=== PATIENT | male | born 1955 | race Caucasian/White ===

== ENCOUNTER 2017-08-11 11:30 | Outpatient (CLI) | payer SELFPAY ==
[~2017-08-11] VITALS: Ht 188 cm; Wt 102.5 kg
[2017-08-11] MEDS ORDERED: METO-395 PO (11:49)
[2017-08-11] MEDS ORDERED: ALPR1TAB7 PO (11:49)
[2017-08-11] MEDS ORDERED: ZOLP10TA PO (11:49)
[2017-08-11] MEDS ORDERED: HYDR-753 PO (11:49)
[2017-08-11] MEDS ORDERED: LISI1TAB10 PO (11:49)
[2017-08-11] MEDS ORDERED: TRAM50TA2 PO (11:49)
== END 2017-08-11 12:47 ==
LOC: PREOP 11:30
PROVIDERS: ATTEND Surgery
DX: Z01.818 Encounter for other preprocedural examination (principal); Z12.11 Encounter for screening for malignant neoplasm of colon

== ENCOUNTER 2017-08-16 09:13 | Day surgery (SDC) | payer OTHER ==
[~2017-08-16] VITALS: Ht 188 cm; Wt 102.5 kg
[~2017-08-16 09:13] MED LIST: ALPR1TAB7 PO; HYDR-753 PO; LISI1TAB10 PO; METO-395 PO; TRAM50TA2 PO; ZOLP10TA PO
--- OUTSIDE RECORDS SUMMARY | 2017-08-16 09:16 | XMS REPORT ---
Author Author WALTER WALTERS Organization [facility] Address [address] [place] [address] Care Team Providers Care Tax Credit Leasing Consultant Name Role Phone MICHAEL WALTERSNETTE Unavailable PROBLEMS Type Condition ICD9-CM Code [id number] Code Onset Dates Condition Status SNOMED Code Problem Generalized anxiety disorder F41.1 Active 58956410 Problem Essential hypertension I10 Active 85597693 Problem Hypercholesterolemia E78.00 Active 20604630 Problem Mid sternal chest pain R07.89 Active 76090203 Problem Family history of aortic aneurysm Z82.49 Active 966792660 Problem Coronary artery disease, angina presence unspecified, unspecified vessel or lesion type, unspecified whether [place] or transplanted heart I25.10 Active 70593797 Problem Elevated liver enzymes R74.8 Active 095762831 Problem Chronic hepatitis C with hepatic coma B18.2 Active 451904158 Problem High risk sexual behavior Z72.51 Active 146870795 ALLERGIES No Known Allergies SOCIAL HISTORY Never Assessed PLAN OF CARE Activity Details Follow Up 3 Months Reason: VITAL SIGNS Height 73 in 2016-09-01 Weight 208.5 lbs 2016-09-01 Temperature 97.8 degrees Fahrenheit 2016-09-01 Heart Rate 92 bpm 2016-09-01 Respiratory Rate 20 2016-09-01 BMI 27.51 kg/m2 2016-09-01 Blood pressure systolic 200 mmHg 2016-09-01 Blood pressure diastolic 110 mmHg 2016-09-01 MEDICATIONS Medication Instructions Dosage Frequency Start Date End Date Duration Status Azithromycin 1 GM Orally Once a day as directed 24h Aug, Active Xanax 1 MG Orally as needed four times a day 1 Tablet 6h Aug, Active Ibuprofen 800 MG Orally Three times a day 1 tablet 8h Active Hydrocodone-Acetaminophen 10-325 mg 1 Tablet by Oral route 3 times per day PRN pain Jul, Active Losartan Potassium 100 mg Orally Once a day 1 tablet 24h Aug, Active RESULTS Name Result Date Reference Range URINE DRUG SCREEN (IN HOUSE) 2016-09-01 Lot # [id number] Exp date 04/2018 Control + COCAINE negative AMPH negative MTD negative THC negative OPIATE negative BENZO positive PCP negative BAR negative OXY negative MAMP negative TCA negative BUP negative MDMA negative HEP C AB W/REFLEX ([facility] ONLY) 2016-09-01 PROCEDURES Procedure Date Ordered Result Body Site HEP C AB W/REFLEX ([facility] ONLY) September 01, 2016 VENIPUNCT, ROUTINE* September 01, 2016 DRUG TEST PRSMV DIR OPT OBS September 01, 2016 IMMUNIZATIONS No Known Immunizations MEDICAL (GENERAL) HISTORY Type Description Date Medical History anxiety Medical History hypertension Medical History chronic pain Surgical History Stents in heart 07/2015
--- OUTSIDE RECORDS SUMMARY | 2017-08-16 09:16 | XMS REPORT ---
Author Author ALMA HAYNES Organization [employer] Address Unknown Phone Unavailable Care Team Providers Care Appliance Assembler Name Role Phone ALMA HAYENS Unavailable Allergies No Known Allergies Problems Problem Type Condition Code Onset Dates Condition Status Problem Generalized anxiety disorder 300.02 Active Problem Other, multiple, and unspecified sites, insect bite, nonvenomous, infected 919.5 Active Problem Essential hypertension, benign 401.1 Active Problem Pain in soft tissues of limb 729.5 Active Medications Medication Code System Code Instructions Start Date End Date Status Dosage Xanax [facility] [address]-35 1 MG Orally 4 times a day PRN anxiety August 26, 2014 1 Tablet Results No Known Results Summary Purpose [employer] Submission
--- OUTSIDE RECORDS SUMMARY | 2017-08-16 09:16 | XMS REPORT ---
Author Author ALMA HAYNES Organization [employer] Address Unknown Phone Unavailable Care Team Providers Care Overhead Worker Name Role Phone ALMA HAYNES CP Unavailable Allergies No Known Allergies Problems Problem Type Condition Code Onset Dates Condition Status Problem Generalized anxiety disorder 300.02 Active Problem Other, multiple, and unspecified sites, insect bite, nonvenomous, infected 919.5 Active Problem Essential hypertension, benign 401.1 Active Problem Pain in soft tissues of limb 729.5 Active Medications No Known Medications Results No Known Results Summary Purpose [employer] Submission
--- OUTSIDE RECORDS SUMMARY | 2017-08-16 09:16 | XMS REPORT ---
Author Author ALMA HAYNES Organization [facility] Address Unknown Care Team Providers Care Fruit Buyer Name Role Phone ALMA HAYNES Unavailable PROBLEMS Type Condition ICD9-CM Code [id number] Code Onset Dates Condition Status SNOMED Code Problem Generalized anxiety disorder F41.1 Active 79732309 Problem Essential hypertension I10 Active 42945132 Problem Hypercholesterolemia E78.00 Active 55827973 Problem Mid sternal chest pain R07.89 Active 34737186 Problem Family history of aortic aneurysm Z82.49 Active 496795812 Problem Coronary artery disease, angina presence unspecified, unspecified vessel or lesion type, unspecified whether [place] or transplanted heart I25.10 Active 80383383 Problem Elevated liver enzymes R74.8 Active 111870070 Problem Chronic hepatitis C with hepatic coma B18.2 Active 387914958 Problem High risk sexual behavior Z72.51 Active 201460625 ALLERGIES Unknown Allergies SOCIAL HISTORY No smoking Hx information available PLAN OF CARE VITAL SIGNS MEDICATIONS Medication Instructions Dosage Frequency Start Date End Date Duration Status Xanax 1 MG Orally 4 times a day PRN anxiety 1 Tablet Aug, 30 days Active RESULTS No Results PROCEDURES No Known procedures IMMUNIZATIONS No Known Immunizations
--- OUTSIDE RECORDS SUMMARY | 2017-08-16 09:17 | XMS REPORT ---
Author Author ALMA HAYNES Organization [employer] Address Unknown Phone Unavailable Care Team Providers Care Chemicals Distiller Name Role Phone ALMA HAYNES CP Unavailable [...]
--- OUTSIDE RECORDS SUMMARY | 2017-08-16 09:17 | XMS REPORT ---
Author Author WALTER WALTERS Organization [facility] Address [address] [place] [address] Care Team Providers Care Medical Staff Services Coordinator Name Role Phone MICHAEL WALTERSNETTE Unavailable PROBLEMS Type Condition ICD9-CM Code [id number] Code Onset Dates Condition Status SNOMED Code Problem Generalized anxiety disorder F41.1 Active 17494816 Problem Essential hypertension I10 Active 98379741 Problem Hypercholesterolemia E78.00 Active 53282738 Problem Mid sternal chest pain R07.89 Active 66084055 Problem Family history of aortic aneurysm Z82.49 Active 221453461 Problem Coronary artery disease, angina presence unspecified, unspecified vessel or lesion type, unspecified whether [place] or transplanted heart I25.10 Active 06348376 Problem Elevated liver enzymes R74.8 Active 112002913 Problem Chronic hepatitis C with hepatic coma B18.2 Active 620221848 Problem High risk sexual behavior Z72.51 Active 729584335 ALLERGIES No Known Allergies SOCIAL HISTORY Never Assessed PLAN OF CARE Activity Details Follow Up 4 Weeks Reason:blood pressure VITAL SIGNS Height 73 in 2016-08-30 Weight 208.5 lbs 2016-08-30 Temperature 98.0 degrees Fahrenheit 2016-08-30 Heart Rate 88 bpm 2016-08-30 Respiratory Rate 20 2016-08-30 BMI 27.51 kg/m2 2016-08-30 Blood pressure systolic 180 mmHg 2016-08-30 Blood pressure diastolic 112 mmHg 2016-08-30 MEDICATIONS Medication Instructions Dosage Frequency Start Date End Date Duration Status Azithromycin 1 GM Orally Once a day as directed 24h Aug, Active Losartan Potassium 100 mg Orally Once a day 1 tablet 24h Aug, 30 day(s) Active Hydrocodone-Acetaminophen 10-325 mg 1 Tablet by Oral route 3 times per day PRN pain Jul, Active Ibuprofen 800 MG Orally Three times a day 1 tablet 8h Active Xanax 1 MG Orally as needed four times a day 1 Tablet 6h Aug, Active RESULTS Name Result Date Reference Range CBC 2016-08-30 WBC 10.9 3.4-10.8 RBC 5.44 4.14-5.80 Hemoglobin 16.1 12.6-17.7 Hematocrit 46.8 37.5-51.0 MCV 86 79-97 MCH 29.6 26.6-33.0 MCHC 34.4 31.5-35.7 RDW 13.8 12.3-15.4 Platelets 201 150-379 Neutrophils 75 Lymphs 19 Monocytes 5 Eos 1 Basos 0 Neutrophils (Absolute) 8.1 1.4-7.0 Lymphs (Absolute) 2.1 0.7-3.1 Monocytes(Absolute) 0.6 0.1-0.9 Eos (Absolute) 0.1 0.0-0.4 Baso (Absolute) 0.0 0.0-0.2 Immature Granulocytes 0 Immature Grans (Abs) 0.0 0.0-0.1 LIPID PANEL 2016-08-30 Cholesterol, Total 129 100-199 Triglycerides 244 0-149 HDL Cholesterol 31 >39 VLDL Cholesterol Atif 49 5-40 LDL Cholesterol Calc 49 0-99 CMP 2016-08-30 Glucose, Serum 117 65-99 BUN 21 6-24 Creatinine, Serum 1.00 0.76-1.27 eGFR If NonAfricn Am 83 >59 eGFR If Africn Am 95 >59 BUN/Creatinine Ratio 21 9-20 Sodium, Serum 139 134-144 Potassium, Serum 4.2 3.5-5.2 Chloride, Serum 101 96-106 Carbon Dioxide, Total 22 18-29 Calcium, Serum 9.5 8.7-10.2 Protein, Total, Serum 7.4 6.0-8.5 Albumin, Serum 4.8 3.5-5.5 Globulin, Total 2.6 1.5-4.5 A/G Ratio 1.8 1.1-2.5 Bilirubin, Total 0.3 0.0-1.2 Alkaline Phosphatase, S 97 39-117 AST (SGOT) 15 0-40 ALT (SGPT) 14 0-44 HEPATITIS PROFILE 2016-08-30 Hep A Ab, IgM Negative Negative HBsAg Screen Negative Negative Hep B Core Ab, IgM Negative Negative Hep C Virus Ab >11.0 0.0-0.9 GC/CHLAM URINE (STATE) 2016-08-30 CHLAMYDIA GC HIV (STATE) 2016-08-30 PROCEDURES Procedure Date Ordered Result Body Site LIPID PANEL August 30, 2016 COMPREHEN METABOLIC PANEL August 30, 2016 ACUTE HEPATITIS PANEL August 30, 2016 VENIPUNCT, ROUTINE* August 30, 2016 No Charge August 30, 2016 IMMUNIZATIONS No Known Immunizations MEDICAL (GENERAL) HISTORY Type Description Date Medical History anxiety Medical History hypertension Medical History chronic pain Surgical History Stents in heart 07/2015
--- OUTSIDE RECORDS SUMMARY | 2017-08-16 09:17 | XMS REPORT ---
Author Author ALMA HAYNES Organization [employer] Address Unknown Phone Unavailable Care Team Providers Care Performance Architect Name Role Phone ALMA HAYNES CP Unavailable Allergies, Adverse Reactions, Alerts Substance Reaction Event Type N.K.D.A. Info Not Available Non Drug Allergy Problems Problem Type Condition ICD-9 Code Onset Dates Condition Status Problem Generalized anxiety disorder 300.02 Active Problem Other, multiple, and unspecified sites, insect bite, nonvenomous, infected 919.5 Active Problem Essential hypertension, benign 401.1 Active Problem Pain in soft tissues of limb 729.5 Active Assessment JUAN MIGUEL (generalized anxiety disorder) 300.02 Active Medications Medication Code System Code Instructions Start Date End Date Status Dosage Hydrocodone-Acetaminophen [facility] [address]-53 10-325 mg Aug 07, 2014 1 Tablet by Oral route 3 times per day PRN pain Lisinopril-Hydrochlorothiazide [facility] [address]-50 10-12.5 mg Aug 07, 2014 take 1 tablet by Oral route 2 times per day Xanax [facility] [address]-12 1 MG Orally 4 times a day PRN anxiety August 26, 2014 1 Tablet Procedures Procedure Coding System Code Date Office Visit, Est Pt., Level 3 CPT-4 45508 Feb 26, 2015 Vital Signs Date/Time: Feb 26, 2015 Temperature 98.0 F Weight 214.7 lbs Height 73 in BMI 28.32 Index Blood Pressure Diastolic 98 mmHg Blood Pressure Systolic 160 mmHg Cardiac Monitoring Heart Rate 80 bpm Results No Known Results Summary Purpose [employer] Submission
--- OUTSIDE RECORDS SUMMARY | 2017-08-16 09:17 | XMS REPORT ---
Author Author WALTER WALTERS Organization [facility] Address [address] [place] [address] Care Team Providers Care Technical Writer Name Role Phone WALTER WALTERS Unavailable PROBLEMS Type Condition ICD9-CM Code [id number] Code Onset Dates Condition Status SNOMED Code Problem Generalized anxiety disorder F41.1 Active 22775655 Problem Essential hypertension I10 Active 16097343 Problem Hypercholesterolemia E78.00 Active 22202777 Problem Mid sternal chest pain R07.89 Active 74186013 Problem Family history of aortic aneurysm Z82.49 Active 772315284 Problem Coronary artery disease, angina presence unspecified, unspecified vessel or lesion type, unspecified whether [place] or transplanted heart I25.10 Active 67991243 Problem Elevated liver enzymes R74.8 Active 080553031 Problem Chronic hepatitis C with hepatic coma B18.2 Active 221797919 Problem High risk sexual behavior Z72.51 Active 862168298 ALLERGIES Unknown Allergies SOCIAL HISTORY No smoking Hx information available PLAN OF CARE VITAL SIGNS MEDICATIONS Medication Instructions Dosage Frequency Start Date End Date Duration Status Gabapentin 300 MG Orally Three times a day 1 capsule 8h Jul, 30 day(s) Active RESULTS No Results PROCEDURES No Known procedures IMMUNIZATIONS No Known Immunizations
--- OUTSIDE RECORDS SUMMARY | 2017-08-16 09:17 | XMS REPORT ---
Author Author ALMA HAYNES Organization [employer] Address Unknown Phone Unavailable Care Team Providers Care C Wpf Developer Name Role Phone ALMA HAYNES CP Unavailable [...]
--- OUTSIDE RECORDS SUMMARY | 2017-08-16 09:17 | XMS REPORT ---
Author Author HI GIBBS [facility] [employer] Address Unknown Phone Unavailable Care Team Providers Care Manager Utilization Name Role Phone HI GIBBS CP Unavailable Allergies, Adverse Reactions, Alerts Substance Reaction Event Type N.K.D.A. Info Not Available Non Drug Allergy Problems Problem Type Condition Code Onset Dates Condition Status Problem Generalized anxiety disorder 300.02 Active Problem Other, multiple, and unspecified sites, insect bite, nonvenomous, infected 919.5 Active Problem Essential hypertension, benign 401.1 Active Assessment Hematoma T14.8 Active Problem Pain in soft tissues of limb 729.5 Active Assessment Dental abscess K04.7 Active Medications Medication Code System Code Instructions Start Date End Date Status Dosage Amoxicillin [facility] [address]-74 875 MG Orally 2 times a day Mar 29, 2016 Apr 05, 2016 1 tablet Hydrocodone-Acetaminophen [facility] [address]-88 10-325 mg Aug 07, 2014 1 Tablet by Oral route 3 times per day PRN pain Gabapentin [facility] [address]-61 600 MG Orally 2 times a day 1 tablet Amlodipine Besylate [facility] [address]-58 10 MG Orally Once a day 1 tablet Percocet [facility] [address]-43 7.5-325 MG Orally every 6 hrs 1 tablet as needed Bystolic [facility] [address]-40 10 MG Orally Once a day 1 tablet Xanax [facility] [address]-64 1 MG Orally 4 times a day PRN anxiety August 26, 2014 1 Tablet Promethazine HCl [facility] [address]-80 25 MG Orally every 12 hrs 1 tablet as needed Ibuprofen [facility] [address]-47 800 MG Orally Three times a day 1 tablet Atorvastatin Calcium [facility] [address]-54 40 MG Orally Once a day 1 tablet Procedures Procedure Coding System Code Date Office Visit, Est Pt., Level 2 CPT-4 30552 Mar 29, 2016 Vital Signs Date/Time: Mar 29, 2016 Cardiac Monitoring Heart Rate 104 bpm Weight 206.5 lbs Height 73 in BMI 27.24 Index Blood Pressure Diastolic 100 mmHg Blood Pressure Systolic 180 mmHg Results No Known Results Summary Purpose [employer] Submission
--- OUTSIDE RECORDS SUMMARY | 2017-08-16 09:17 | XMS REPORT ---
Author Author WALTER WALTERS Organization [facility] Address [address] [place] [address] Care Team Providers Care Teacher Aide Name Role Phone MICHAEL WALTERSNETTE Unavailable PROBLEMS Type Condition ICD9-CM Code [id number] Code Onset Dates Condition Status SNOMED Code Problem Generalized anxiety disorder F41.1 Active 84567326 Problem Essential hypertension I10 Active 86531977 Problem Hypercholesterolemia E78.00 Active 37953888 Problem Mid sternal chest pain R07.89 Active 76662862 Problem Family history of aortic aneurysm Z82.49 Active 830316044 Problem Coronary artery disease, angina presence unspecified, unspecified vessel or lesion type, unspecified whether [place] or transplanted heart I25.10 Active 26521170 Problem Elevated liver enzymes R74.8 Active 382322551 Problem Chronic hepatitis C with hepatic coma B18.2 Active 517927955 Problem High risk sexual behavior Z72.51 Active 507412993 ALLERGIES Substance Reaction Event Type Date Status N.K.D.A. Unknown Non Drug Allergy Jul, Unknown SOCIAL HISTORY No smoking Hx information available PLAN OF CARE Activity Details Follow Up 4 Weeks Reason:htn VITAL SIGNS Height 73 in 2016-08-02 Weight 208 lbs 2016-08-02 Temperature 98.3 degrees Fahrenheit 2016-08-02 Heart Rate 88 bpm 2016-08-02 Respiratory Rate 20 2016-08-02 BMI 27.44 kg/m2 2016-08-02 Blood pressure systolic 180 mmHg 2016-08-02 Blood pressure diastolic 102 mmHg 2016-08-02 MEDICATIONS Medication Instructions Dosage Frequency Start Date End Date Duration Status Xanax 1 MG Orally as needed four times a day 1 Tablet 6h Aug, 30 days Active Hydrocodone-Acetaminophen 10-325 mg 1 Tablet by Oral route 3 times per day PRN pain Jul, Active Ibuprofen 800 MG Orally Three times a day 1 tablet 8h Active [place] Fumarate 150 MG Orally Once a day 1 tablet 24h Jul, Aug, 30 day(s) Active RESULTS No Results PROCEDURES Procedure Date Ordered Related Diagnosis Body Site Office Visit, Est Pt., Level 4 Aug 02, 2016 IMMUNIZATIONS No Known Immunizations
--- OUTSIDE RECORDS SUMMARY | 2017-08-16 09:17 | XMS REPORT ---
Author Author WALTER WALTERS Organization [facility] Address [address] [place] [address] Care Team Providers Care Aboriginal Home School Liaison Officer Name Role Phone WALTER WALTERS Unavailable PROBLEMS Type Condition ICD9-CM Code [id number] Code Onset Dates Condition Status SNOMED Code Problem Generalized anxiety disorder F41.1 Active 29735768 Problem Essential hypertension I10 Active 94999449 Problem Hypercholesterolemia E78.00 Active 63008197 Problem Mid sternal chest pain R07.89 Active 73600419 Problem Family history of aortic aneurysm Z82.49 Active 489617347 Problem Coronary artery disease, angina presence unspecified, unspecified vessel or lesion type, unspecified whether [place] or transplanted heart I25.10 Active 13534911 Problem Elevated liver enzymes R74.8 Active 029635581 Problem Chronic hepatitis C with hepatic coma B18.2 Active 100699483 Problem High risk sexual behavior Z72.51 Active 629864526 ALLERGIES No Information SOCIAL HISTORY Never Assessed PLAN OF CARE VITAL SIGNS MEDICATIONS Unknown Medications RESULTS No Results PROCEDURES No Known procedures IMMUNIZATIONS No Known Immunizations MEDICAL (GENERAL) HISTORY Type Description Date Medical History anxiety Medical History hypertension Medical History chronic pain Surgical History Stents in heart 07/2015
--- OUTSIDE RECORDS SUMMARY | 2017-08-16 09:17 | XMS REPORT ---
Author Author ALMA HAYNES [facility] Address Unknown Care Team Providers Care Hopper Filler Name Role Phone ALMA HAYNES Unavailable PROBLEMS Type Condition ICD9-CM Code [id number] Code Onset Dates Condition Status SNOMED Code Problem Generalized anxiety disorder F41.1 Active 99137474 Problem Essential hypertension, benign 401.1 Active 0882282 Problem Pain in soft tissues of limb 729.5 Active 42953216 Problem Generalized anxiety disorder 300.02 Active 84674350 Problem Other, multiple, and unspecified sites, insect bite, nonvenomous, infected 919.5 Active ALLERGIES Unknown Allergies SOCIAL HISTORY No smoking Hx information available PLAN OF CARE VITAL SIGNS MEDICATIONS Medication Instructions Dosage Frequency Start Date End Date Duration Status Xanax 1 MG Orally 4 times a day PRN anxiety 1 Tablet Aug, Active RESULTS No Results PROCEDURES No Known procedures IMMUNIZATIONS No Known Immunizations
--- OUTSIDE RECORDS SUMMARY | 2017-08-16 09:17 | XMS REPORT ---
Author Author ALMA HAYNES Organization [employer] Address Unknown Phone Unavailable Care Team Providers Care Dealer Card Room Name Role Phone ALMA HAYNES CP Unavailable [...] Instructions Start Date End Date Status Dosage Alprazolam [facility] [address]-30 1 MG TAKE 1 TABLET BY MOUTH FOUR TIMES DAILY NEEDED FOR ANXIETY Results No Known Results Summary Purpose [employer] Submission
--- OUTSIDE RECORDS SUMMARY | 2017-08-16 09:17 | XMS REPORT ---
Author Author ALMA HAYNES Organization [employer] Address Unknown Phone Unavailable Care Team Providers Care Euclid Operator Name Role Phone ALMA HAYNES CP Unavailable [...]
--- OUTSIDE RECORDS SUMMARY | 2017-08-16 09:17 | XMS REPORT ---
Author Author ALMA Saravia Organization [facility] Address Unknown Care Team Providers Care Director Of Therapy Services Name Role Phone ALMA Saravia Unavailable PROBLEMS Type Condition ICD9-CM Code [id number] Code Onset Dates Condition Status SNOMED Code Problem Generalized anxiety disorder F41.1 Active 01894254 Problem Essential hypertension I10 Active 21909483 Problem Hypercholesterolemia E78.00 Active 36411060 Problem Mid sternal chest pain R07.89 Active 29636097 Problem Family history of aortic aneurysm Z82.49 Active 604351490 Problem Coronary artery disease, angina presence unspecified, unspecified vessel or lesion type, unspecified whether [place] or transplanted heart I25.10 Active 63004793 Problem Elevated liver enzymes R74.8 Active 468731086 Problem Chronic hepatitis C with hepatic coma B18.2 Active 268137029 Problem High risk sexual behavior Z72.51 Active 728178496 ALLERGIES No Information SOCIAL HISTORY Never Assessed PLAN OF CARE Activity Details Follow Up 3 Months Reason: VITAL SIGNS Height 73 in 2016-08-02 Weight 207.7 lbs 2016-08-02 Heart Rate 72 bpm 2016-08-02 Respiratory Rate 20 2016-08-02 BMI 27.40 kg/m2 2016-08-02 Blood pressure systolic 200 mmHg 2016-08-02 Blood pressure diastolic 98 mmHg 2016-08-02 MEDICATIONS Medication Instructions Dosage Frequency Start Date End Date Duration Status Ibuprofen 800 MG Orally Three times a day 1 tablet 8h Active Xanax 1 MG Orally as needed four times a day 1 Tablet 6h Aug, 30 days Active Hydrocodone-Acetaminophen 10-325 mg 1 Tablet by Oral route 3 times per day PRN pain Jul, Active RESULTS No Results PROCEDURES No Known procedures IMMUNIZATIONS No Known Immunizations MEDICAL (GENERAL) HISTORY Type Description Date Medical History anxiety Medical History hypertension Medical History chronic pain Surgical History Stents in heart 07/2015
--- OUTSIDE RECORDS SUMMARY | 2017-08-16 09:17 | XMS REPORT ---
Author Author WALTER WALTERS Organization [facility] Address [address] [place] [address] Care Team Providers Care Licensed Appraiser Name Role Phone MICHAEL WALTERSNETTE Unavailable PROBLEMS Type Condition ICD9-CM Code CCL67-MO Code Onset Dates Condition Status SNOMED Code Problem Generalized anxiety disorder F41.1 Active 73948131 Problem Essential hypertension I10 Active 87343524 Problem Hypercholesterolemia E78.00 Active 98234395 Problem Mid sternal chest pain R07.89 Active 51364994 Problem Family history of aortic aneurysm Z82.49 Active 532858130 Problem Coronary artery disease, angina presence unspecified, unspecified vessel or lesion type, unspecified whether [place] or transplanted heart I25.10 Active 26102997 Problem Elevated liver enzymes R74.8 Active 165159896 Problem Chronic hepatitis C with hepatic coma B18.2 Active 142441521 Problem High risk sexual behavior Z72.51 Active 942710686 ALLERGIES No Known Allergies SOCIAL HISTORY Never Assessed PLAN OF CARE Activity Details Follow Up 3 Months Reason:htn, VITAL SIGNS Height 73 in 2016-11-17 Weight 215.0 lbs 2016-11-17 Temperature 98.0 degrees Fahrenheit 2016-11-17 Heart Rate 76 bpm 2016-11-17 Respiratory Rate 18 2016-11-17 BMI 28.36 kg/m2 2016-11-17 Blood pressure systolic 170 mmHg 2016-11-17 Blood pressure diastolic 112 mmHg 2016-11-17 MEDICATIONS Medication Instructions Dosage Frequency Start Date End Date Duration Status Losartan Potassium 100 mg Orally Once a day 1 tablet 24h October, 30 day(s) Active Hydrocodone-Acetaminophen 10-325 mg 1 Tablet by Oral route 3 times per day PRN pain Jul, Active Xanax 1 MG Orally as needed four times a day 1 Tablet 6h Aug, Active Aspirin 81 MG Orally Once a day 1 tablet 24h Sep, 30 day(s) Active Ibuprofen 800 MG Orally Three times a day 1 tablet 8h Active RESULTS No Results PROCEDURES Procedure Date Ordered Result Body Site No Charge November 17, 2016 IMMUNIZATIONS No Known Immunizations MEDICAL (GENERAL) HISTORY Type Description Date Medical History anxiety Medical History hypertension Medical History chronic pain Surgical History Stents in heart 07/2015
--- OUTSIDE RECORDS SUMMARY | 2017-08-16 09:17 | XMS REPORT ---
Author Author ALMA HAYNES [facility] [employer] Address Unknown Phone Unavailable Care Team Providers Care Marble Installer Name Role Phone ALMA HAYNES CP Unavailable [...] soft tissues of limb 729.5 Active Assessment Generalized anxiety disorder F41.1 Active Medications Medication Code System Code Instructions Start Date End Date Status Dosage Xanax [facility] [address]-84 1 MG Orally 4 times a day PRN anxiety August 26, 2014 1 Tablet Hydrocodone-Acetaminophen [facility] [address]-47 10-325 mg Aug 07, 2014 1 Tablet by Oral route 3 times per day PRN pain Clonidine HCl [facility] [address]-00 0.1 MG Orally twice a day 1 tablet Procedures Procedure Coding System Code Date Office Visit, Est Pt., Level 3 CPT-4 18718 Jun 06, 2015 Vital Signs Date/Time: Jun 06, 2015 Cardiac Monitoring Heart Rate 72 bpm Weight 213.0 lbs Height 73 in BMI 28.10 Index Blood Pressure Diastolic 120 mmHg Blood Pressure Systolic 190 mmHg Results No Known Results Summary Purpose [employer] Submission
--- OUTSIDE RECORDS SUMMARY | 2017-08-16 09:17 | XMS REPORT ---
Author Author ALMA Saravia Organization [facility] Address Unknown Care Team Providers Care Store Associate Name Role Phone ALMA Saravia Unavailable PROBLEMS Type Condition ICD9-CM Code [id number] Code Onset Dates Condition Status SNOMED Code Problem Generalized anxiety disorder F41.1 Active 11445977 Problem Essential hypertension I10 Active 01351015 Problem Hypercholesterolemia E78.00 Active 52572837 Problem Mid sternal chest pain R07.89 Active 63494213 Problem Family history of aortic aneurysm Z82.49 Active 518527078 Problem Coronary artery disease, angina presence unspecified, unspecified vessel or lesion type, unspecified whether [place] or transplanted heart I25.10 Active 85087844 Problem Elevated liver enzymes R74.8 Active 357409669 Problem Chronic hepatitis C with hepatic coma B18.2 Active 128585582 Problem High risk sexual behavior Z72.51 Active 049588644 ALLERGIES No Information SOCIAL HISTORY Never Assessed PLAN OF CARE Activity Details Follow Up 3 Months Reason: VITAL SIGNS Height 73 in 2016-11-01 Weight 218 lbs 2016-11-01 Heart Rate 88 bpm 2016-11-01 Respiratory Rate 18 2016-11-01 BMI 28.76 kg/m2 2016-11-01 Blood pressure systolic 178 mmHg 2016-11-01 Blood pressure diastolic 94 mmHg 2016-11-01 MEDICATIONS Medication Instructions Dosage Frequency Start Date End Date Duration Status Aspirin 81 MG Orally Once a day 1 tablet 24h Sep, 30 day(s) Active Ibuprofen 800 MG Orally Three times a day 1 tablet 8h Active Hydrocodone-Acetaminophen 10-325 mg 1 Tablet by Oral route 3 times per day PRN pain Jul, Active Xanax 1 MG Orally as needed four times a day 1 Tablet 6h Aug, 30 days Active Gabapentin 300 MG Orally Three times a day 1 capsule 8h 30 Active Metoprolol Succinate ER 100 MG Orally Once a day 1 tablet 24h Sep, Active RESULTS No Results PROCEDURES No Known procedures IMMUNIZATIONS No Known Immunizations MEDICAL (GENERAL) HISTORY Type Description Date Medical History anxiety Medical History hypertension Medical History chronic pain Surgical History Stents in heart 07/2015
--- OUTSIDE RECORDS SUMMARY | 2017-08-16 09:17 | XMS REPORT ---
Author Author ALMA HAYNES Organization [employer] Address Unknown Phone Unavailable Care Team Providers Care Delivery Architect Name Role Phone ALMA HAYNES Unavailable Allergies No Known Allergies Problems Problem Type Condition Code Onset Dates Condition Status Problem Generalized anxiety disorder 300.02 Active Problem Other, multiple, and unspecified sites, insect bite, nonvenomous, infected 919.5 Active Problem Essential hypertension, benign 401.1 Active Problem Pain in soft tissues of limb 729.5 Active Medications Medication Code System Code Instructions Start Date End Date Status Dosage Xanax [facility] [address]-30 1 MG Orally 4 times a day PRN anxiety August 26, 2014 1 Tablet Results No Known Results Summary Purpose [employer]Clinical[employer] Submission
[2017-08-16 09:30] VITALS: BP 169/103
[2017-08-16] MEDS ORDERED: LACTATED RINGERS 1,000 ML IV ONE (09:40)
[2017-08-16] MEDS ORDERED: LACTATED RINGERS 1,000 ML IV PRN (09:45)
[2017-08-16] MEDS ORDERED: PROPOFOL INJECTION 50 ML IV ONE (10:00)
[2017-08-16] MEDS ORDERED: MIDAZOLAM 2 MG/2 ML (VERSED) VIAL ONE (10:01)
--- NOTE | 2017-08-16 11:23 | Progress Note-Post Operative ---
Post-Operative Progess Note Surgeon (s)/Exhibit Builder (s) Surgeon SALMA STEWARD DO Exhibit Builder: na Pre-Operative Diagnosis screening colonoscopy Post-Operative Diagnosis sigmoid polyp, rectal polyp Procedure & Operative Findings Date of Procedure 08/16/17 Procedure Performed/Findings colonoscopy with hot bx sigmoid polyp, and hot bx polypectomy rectal polyp, alex inking of sigmoid polyp Anesthesia Type per mda Estimated Blood Loss Estimated blood loss (mL): scant Specimens/Packing Specimens Removed sigmoid polyp, rectal polyp SALMA STEWARD DO Aug 16, 2017 11:22
--- NOTE | 2017-08-16 11:24 | Discharge Inst-Simple/Standard ---
Discharge Inst-Standard Patient Instructions/Follow Up Plan of Care/Instructions/FU: 2 weeks Tawnya Activity as Tolerated: Yes Discharge Diet: Regular Diet SALMA STEWARD DO Aug 16, 2017 11:24
[2017-08-16 11:30] VITALS: BP 170/94
[2017-08-16 12:00] VITALS: BP 175/90
[2017-08-16 12:31] VITALS: BP 175/90
--- NOTE | 2017-08-16 16:10 | OPERATIVE REPORT ---
DATE OF SERVICE: 08/16/2017 PREOPERATIVE DIAGNOSIS: Screening colonoscopy. POSTOPERATIVE DIAGNOSIS: A large sigmoid polyp and rectal polyp. PROCEDURE PERFORMED: Hot biopsy polypectomy of rectal polyp, also with Judith inking of sigmoid polyp. SURGEON: Salma Bowling DO. ANESTHESIA: Per MDA. ESTIMATED BLOOD LOSS: Scant. COMPLICATIONS: None. INDICATIONS: The patient is a 61-year-old male due for screening colonoscopy. He understands risks and benefits of procedure and wished to proceed with procedure. Consent was signed and on chart. DESCRIPTION OF PROCEDURE: The patient was taken to the endoscopy suite, placed in the left lateral recumbent position. Timeout was performed. Digital rectal exam was performed and there were no palpable polyps, mass or ulcerations. The scope was inserted in the rectum and advanced all the way to the cecum without difficulty. Prep was adequate. There were no polyps, mass or ulcerations in the cecum. The terminal ileum was intubated. No other pathology noted. Scope was returned back into the colon and slowly withdrawn. There are no polyps, masses or ulcerations within the ascending, transverse and descending colon. In the sigmoid colon at approximately 25 cm, a large polyp that seems to faint out over the wall of the colon was present unable to be completely resected, hot biopsies of the polyp were obtained. This was also inked with Judith ink. The scope was continued to be slowly retracted back. Another polyp was present right at the proximal rectum where a hot biopsy polypectomy was performed. Scope was retroflexed noting no other pathology. Scope was returned to its normal position, slowly withdrawn until completely removed. The patient tolerated the procedure well without any complications. He was taken to the recovery room in stable condition. RECOMMENDATIONS: The patient will follow up on pathology in 2 weeks. We will discuss surgical resection. Job ID: [id number] DocumentID: [id number] Dictated Date: 08/16/2017 11:27:45 Data Processing Systems Consultant Date: 08/16/2017 16:10:04 Dictated By: SALMA BOWLING DO
== END 2017-08-16 12:15 | disposition home or self-care (01) ==
LOC: ENDO 09:13
PROVIDERS: ATTEND Surgery
DX: Z12.11 Encounter for screening for malignant neoplasm of colon (principal); D12.5 Benign neoplasm of sigmoid colon; D12.8 Benign neoplasm of rectum; I10 Essential (primary) hypertension; G57.93 Unspecified mononeuropathy of bilateral lower limbs; F41.9 Anxiety disorder, unspecified; F17.210 Nicotine dependence, cigarettes, uncomplicated; Z79.899 Other long term (current) drug therapy

== ENCOUNTER 2017-10-20 05:56 | Outpatient (CLI) | payer OTHER ==
[~2017-10-20] VITALS: Ht 188 cm; Wt 102.5 kg
[2017-10-20] MEDS ORDERED: ALPR0.25 PO (14:31)
== END 2017-10-20 14:33 ==
LOC: PREOP 05:56
PROVIDERS: ATTEND Surgery
DX: Z01.818 Encounter for other preprocedural examination (principal); D12.6 Benign neoplasm of colon, unspecified

== ENCOUNTER 2017-10-27 05:51 | Inpatient (IN) | payer OTHER ==
[~2017-10-27] VITALS: Ht 188 cm; Wt 102.5 kg
[2017-10-27] VITALS (9 sets, daily range): BP systolic 169–188; BP diastolic 87–103
[~2017-10-27 05:51] MED LIST changes: +ALPR0.25 PO
--- OUTSIDE RECORDS SUMMARY | 2017-10-27 05:58 | XMS REPORT ---
Author Author ROCÍO DAYANARA Organization [facility] Address [address] [place] [address] Care Team Providers Care Transit Mixer Operator Name Role Phone ROCÍO DAYANARA Unavailable PROBLEMS Type Condition ICD9-CM Code MLO95-YH Code Onset Dates Condition Status SNOMED Code Problem Generalized anxiety disorder F41.1 Active 74066388 Problem Essential hypertension I10 Active 28281618 Problem Hypercholesterolemia E78.00 Active 10745084 Problem Mid sternal chest pain R07.89 Active 86566642 Problem Family history of aortic aneurysm Z82.49 Active 220761618 Problem Coronary artery disease, angina presence unspecified, unspecified vessel or lesion type, unspecified whether [place] or transplanted heart I25.10 Active 21149329 Problem Elevated liver enzymes R74.8 Active 875936487 Problem Chronic hepatitis C with hepatic coma B18.2 Active 157727141 Problem High risk sexual behavior Z72.51 Active 779330106 ALLERGIES No Information ENCOUNTERS Encounter Location Date Diagnosis [place] [id number] [place] [address] 00790[address] 3148 October, [facility] [id number] [place] [address] 98543- 0114 Sep, Generalized anxiety disorder F41.1 [facility] [id number] [place] [address] 73680- 4214 Aug, Generalized anxiety disorder F41.1 [facility] [id number] [place] [address] 14347- 0303 Jul, Essential hypertension I10 [facility] [id number] [place] [address] 80501- 8294 Jul, Essential hypertension I10 [facility] [id number] [place] [address] 72986- 6347 Jul, Generalized anxiety disorder F41.1 [facility] [id number] [place] [address] 84151- 6190 Jun, Generalized anxiety disorder F41.1 [facility] [id number] [place] [address] 60703- 1590 May, [facility] [id number] [place] [address] 20102- 2570 May, Essential hypertension I10 ; Generalized anxiety disorder F41.1 and Routine adult health maintenance Z00.00 [facility] [id number] [place] [address] 75291- 2681 May, [place] [id number] [place] [address] 56870- 9788 Apr, [facility] [id number] [place] [address] 15224 -5392 Apr, Screen for STD (sexually transmitted disease) Z11.3 and Tinea cruris B35.6 [place] [id number] [place] [address] 11579- 2869 Apr, Generalized anxiety disorder F41.1 [place] [id number] [place] [address] 52388- 7652 Mar, [place] [id number] [place] [address] 26631- 1845 Feb, Generalized anxiety disorder F41.1 [facility] [id number] [place] [address] 60164- 8790 Jan, Generalized anxiety disorder F41.1 [place] [id number] [place] [address] 30052- 7843 October, Essential hypertension I10 ; Generalized anxiety disorder F41.1 ; Hypercholesterolemia E78.00 ; Screening for colon cancer Z12.11 and Back pain at L4-L5 level M54.5 [facility] [id number] [place] [address] 62725- 9081 October, Generalized anxiety disorder F41.1 [place] [id number] [place] [address] 86457- 7312 October, [place] [id number] [place] [address] 15182- 8316 Sep, Coronary artery disease, angina presence unspecified, unspecified vessel or lesion type, unspecified whether [place] or transplanted heart I25.10 ; Essential hypertension I10 ; Hypercholesterolemia E78.00 ; Generalized anxiety disorder F41.1 ; Elevated liver enzymes R74.8 ; Chronic hepatitis C with hepatic coma B18.2 ; Family history of aortic aneurysm Z82.49 and Mid sternal chest pain R07.89 [place] [address] [id number] [place] [address] 13882- 9723 Sep, Generalized anxiety disorder F41.1 and Essential hypertension I10 [place] [address] [place] [id number] [place] [address] 56149- 0317 Aug, Essential hypertension I10 ; Chronic hepatitis C with hepatic coma B18.2 ; Coronary artery disease, angina presence unspecified, unspecified vessel or lesion type, unspecified whether [place] or transplanted heart I25.10 ; Generalized anxiety disorder F41.1 ; Hypercholesterolemia E78.00 and Back pain at L4-L5 level M54.5 [place] [address] [place] [address] 97980- 6889 Aug, Coronary artery disease, angina presence unspecified, unspecified vessel or lesion type, unspecified whether [place] or transplanted heart I25.10 ; Essential hypertension I10 ; Generalized anxiety disorder F41.1 ; Hypercholesterolemia E78.00 ; High risk sexual behavior Z72.51 and Back pain at L4-L5 level M54.5 [place] [address] [place] [address] [id number] [place] [address] 85072- 9553 06 Jul, 2016 Essential hypertension I10 ; Coronary artery disease, angina presence unspecified, unspecified vessel or lesion type, unspecified whether [place] or transplanted heart I25.10 ; Hypercholesterolemia E78.00 ; Elevated liver enzymes R74.8 and Non compliance with medical treatment Z91.19 [place] [address] [place] [id number] [address] Jul, [facility] [id number] [place] [address] 40449- 3011 Jul, Generalized anxiety disorder F41.1 [facility] [id number] [place] [address] 03275- 7532 Jun, [facility] [id number] [place] [address] 04528- 9313 Mar, [facility] [id number] [place] [address] 74861- 0088 Mar, [facility] [id number] [place] [address] 06396- 0827 Mar, Dental abscess K04.7 and Hematoma T14.8 [facility] [id number] [place] [address] 36269- 7352 Mar, Generalized anxiety disorder F41.1 [facility] [id number] [place] [address] 38121- 8393 Feb, [facility] [id number] [place] [address] 66506- 4050 Nov, [facility] [id number] [place] [address] 79377- 2547 Nov, [facility] [id number] [place] [address] 52971- 1746 Nov, Generalized anxiety disorder F41.1 [facility] [address] [place] [address] 83237- 1466 October, Generalized anxiety disorder F41.1 [facility] [id number] [place] [address] 94972- 5201 Sep, [facility] [address] [address]- 8861 Aug, [facility] [id number] [address]- 2546 Aug, Generalized anxiety disorder F41.1 [facility] [id number] [place] [address] 49908 2546 Jul, 2015 [facility] [address] [address]- 2546 Jul, [facility] [id number] [place] [address] 16321- 3576 May, [facility] [id number] [place] [address] 85597- 9616 May, [facility] [address] [place] [address] 34416- 7896 May, Generalized anxiety disorder F41.1 [facility] [address] [address]- 2546 May, [facility] [address] [place] [address] 21740- 9671 Mar, [facility] [address] [address]- 7844 Feb, JUAN MIGUEL (generalized anxiety disorder) 300.02 [facility] [address] [address]- 1686 Dec, [facility] [address] [place] [address]- 5656 Dec, [facility] [address] [place] [address] 2549 Nov, [facility] [address] [address]- 2546 Nov, [facility] [address] [place] [address]- 6806 October, JUAN MIGUEL (generalized anxiety disorder) 300.02 [facility] [address] [address]- 6021 October, [facility] [place] [facility] [address] [id number] [place] [address]- 1460 Sep, [facility] [place] [facility] [address] [id number] [place] [address]- 0914 Sep, [facility] [place] [facility] [address] [id number] [place] [address]- 0380 Aug, [facility] [place] [facility] [address] [id number] [place] [address]- 9304 Aug, [facility] [place] [facility] [address] [id number] [place] [address]- 4909 Jul, 2014 [facility] [place] [facility] [address] [id number] [place] [address]- 7348 Jul, 2014 [facility] [place] [facility] [address] [facility] [id number] [place] [address]- 5543 Jul, 2014 [facility] [place] [facility] [address] [facility] [id number] [place] [address]- 8636 Jul, 2014 [facility] [place] [facility] [address] [facility] [id number] [place] [address]- 7845 Jul, 2014 [facility] [place] [facility] [address] [facility] [id number] [place] [address]- 2498 Jul, 2014 [facility] [place] [facility] [address] [facility] [id number] [place] [address]- 7385 Jul, 2014 [facility] [place] [facility] [address] [id number] [address]- 0059 Jul, 2014 [facility] [place] [facility] [address] [id number] [place] [address]- 2185 May, [facility] [place] [facility] [address] [facility] [id number] [place] [address]- 5175 May, [facility] [place] [facility] [address] [facility] [id number] [place] [address]- 9046 May, [facility] [place] [facility] [address] [facility] [id number] [place] [address]- 0958 May, [facility] [place] [facility] [address] [id number] [place] [address]- 0114 Apr, [facility] [place] [facility] [address] [id number] [place] [address]- 0740 Apr, [facility] [place] [facility] [address] [id number] [place] [address]- 6208 Apr, [facility] [place] [facility] [address] [id number] [place] [address]- 2947 Apr, [facility] [place] [facility] [address] [id number] [place] [address]- 7682 Mar, [facility] [place] [facility] [address] [id number] [place] [address]- 3620 Mar, [facility] [place] [facility] [address] [id number] [place] [address]- 1539 Mar, [facility] [place] [facility] [address] [id number] [place] [address]- 9644 Mar, [facility] [place] [facility] [address] [id number] [place] [address]- 2214 Mar, [facility] [place] [facility] [address] [id number] [place] [address]- 3681 Mar, [facility] [place] [facility] [address] [id number] [place] [address]- 7313 Feb, [facility] [place] [facility] [address] [id number] [place] [address]- 8179 Feb, [facility] [place] [facility] [address] [id number] [place] [address]- 3896 Jan, [facility] [place] [facility] [address] [id number] [place] [address]- 6393 Jan, [facility] [place] [facility] [address] [id number] [place] [address]- 5581 Jan, [facility] [id number] [address] 2546 Jan, [facility] [address] [place] [address] 2546 Jan, [facility] [id number] [address]- 2546 Jan, [facility] [address] [place] [address]- 2546 October, [facility] [address] [place] [address]- 2546 October, [facility] [address] [place] [address]- 1926 Jul, [facility] [address], [place] [address]- 2546 Jul, [facility] [address] [place] [address] 2546 May, [facility] [id number] [address] 2546 May, IMMUNIZATIONS No Known Immunizations SOCIAL HISTORY Never Assessed REASON FOR VISIT xanax refill PLAN OF CARE VITAL SIGNS MEDICATIONS Medication Instructions Dosage Frequency Start Date End Date Duration Status Xanax 1 MG Orally as needed four times a day 1 Tablet 6h Aug, 30 days Active RESULTS No Results PROCEDURES No Known procedures INSTRUCTIONS MEDICATIONS ADMINISTERED No Known Medications MEDICAL (GENERAL) HISTORY Type Description Date Medical History anxiety Medical History hypertension Medical History chronic pain Surgical History Stents in heart 07/2015
--- OUTSIDE RECORDS SUMMARY | 2017-10-27 05:58 | XMS REPORT ---
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 Name Role Phone ROCÍO DAYANARA Unavailable PROBLEMS Type Condition ICD9-CM Code OIV95-PM Code Onset Dates Condition Status SNOMED Code Problem Generalized anxiety disorder F41.1 Active 19040985 Problem Essential hypertension I10 Active 13094201 Problem Hypercholesterolemia E78.00 Active 99117417 Problem Mid sternal chest pain R07.89 Active 48769391 Problem Family history of aortic aneurysm Z82.49 Active 396788548 Problem Coronary artery disease, angina presence unspecified, unspecified vessel or lesion type, unspecified whether [place]ough or transplanted heart I25.10 Active 75851204 Problem Elevated liver enzymes R74.8 Active 735569995 Problem Chronic hepatitis C with hepatic coma B18.2 Active 399360156 Problem High risk sexual behavior Z72.51 Active 025583720 ALLERGIES No Known Allergies ENCOUNTERS Encounter Location Date Diagnosis [place] [id number] [place] [address] 24281- 7742 October, [facility] [id number] [place] [address] 17766- 3987 Sep, Generalized anxiety disorder F41.1 [facility] [id number] [place] [address] 19286- 5633 Aug, Generalized anxiety disorder F41.1 [facility] [id number] [place] [address] 49604- 4776 Jul, Essential hypertension I10 [facility] [id number] [place] [address] 96986- 8686 Jul, Essential hypertension I10 [facility] [id number] [place] [address] 21024- 7463 Jul, Generalized anxiety disorder F41.1 [facility] [id number] [place] [address] 77448- 1048 Jun, Generalized anxiety disorder F41.1 [facility] [id number] [place] [address] 63491- 5539 May, [facility] [id number] [place] [address] 58554- 7009 May, Essential hypertension I10 ; Generalized anxiety disorder F41.1 and Routine adult health maintenance Z00.00 [facility] [id number] [place] [address] 94071- 9604 May, [place] [id number] [place] [address] 14092- 0089 Apr, [facility] [id number] [place] [address] 88396 -8921 Apr, Screen for STD (sexually transmitted disease) Z11.3 and Tinea cruris B35.6 [place] [id number] [place] [address] 62904- 0602 Apr, Generalized anxiety disorder F41.1 [place] [id number] [place] [address] 78794- 6735 Mar, [place] [id number] [place] [address] 12756- 9839 Feb, Generalized anxiety disorder F41.1 [facility] [id number] [place] [address] 02562- 6927 Jan, Generalized anxiety disorder F41.1 [place] [id number] [place] [address] 00734- 4085 October, Essential hypertension I10 ; Generalized anxiety disorder F41.1 ; Hypercholesterolemia E78.00 ; Screening for colon cancer Z12.11 and Back pain at L4-L5 level M54.5 [facility] [id number] [place] [address] 77924- 8453 October, Generalized anxiety disorder F41.1 [place] [id number] [place] [address] 79128- 4095 October, [place] [id number] [place] [address] 39054- 4296 Sep, Coronary artery disease, angina presence unspecified, unspecified vessel or lesion type, unspecified whether [place]ough or transplanted heart I25.10 ; Essential hypertension I10 ; Hypercholesterolemia E78.00 ; Generalized anxiety disorder F41.1 ; Elevated liver enzymes R74.8 ; Chronic hepatitis C with hepatic coma B18.2 ; Family history of aortic aneurysm Z82.49 and Mid sternal chest pain R07.89 [place] [id number] [place] [address] 96149- 8815 Sep, Generalized anxiety disorder F41.1 and Essential hypertension I10 [place] [id number] [place] [address] 48006- 1015 Aug, Essential hypertension I10 ; Chronic hepatitis C with hepatic coma B18.2 ; Coronary artery disease, angina presence unspecified, unspecified vessel or lesion type, unspecified whether [place]ough or transplanted heart I25.10 ; Generalized anxiety disorder F41.1 ; Hypercholesterolemia E78.00 and Back pain at L4-L5 level M54.5 [place] [id number] [place] [address] 69218- 2014 Aug, Coronary artery disease, angina presence unspecified, unspecified vessel or lesion type, unspecified whether [place] or transplanted heart I25.10 ; Essential hypertension I10 ; Generalized anxiety disorder F41.1 ; Hypercholesterolemia E78.00 ; High risk sexual behavior Z72.51 and Back pain at L4-L5 level M54.5 [place] [id number] [place] [address] 84171- 0878 Jul, Essential hypertension I10 ; Coronary artery disease, angina presence unspecified, unspecified vessel or lesion type, unspecified whether [place] slough or transplanted heart I25.10 ; Hypercholesterolemia E78.00 ; Elevated liver enzymes R74.8 and Non compliance with medical treatment Z91.19 [facility] [address] [address] Jul, [facility] [id number] [place] [address] 27336- 5337 Jul, Generalized anxiety disorder F41.1 [facility] [id number] [place] [address] 49300- 9820 Jun, [facility] [id number] [place] [address] 56245- 1803 Mar, [facility] [id number] [place] [address] 48709- 9066 Mar, [facility] [id number] [place] [address] 86541- 7559 Mar, Dental abscess K04.7 and Hematoma T14.8 [facility] [id number] [place] [address] 76317- 3299 Mar, Generalized anxiety disorder F41.1 [facility] [id number] [place] [address] 11444- 8870 Feb, [facility] [id number] [place] [address] 06944- 3269 Nov, [facility] [address] [address] 9156 Nov, [facility] [id number] [place] [address] 11711- 9661 Nov, Generalized anxiety disorder F41.1 [facility] [id number] [place] [address] 35906- 0825 October, Generalized anxiety disorder F41.1 [facility] [id number] [place] [address] 31661- 0132 Sep, [facility] [address] [address]- 4394 Aug, [facility] [address] [address]- 2546 Aug, Generalized anxiety disorder F41.1 [facility] [id number] [place] [address] 90210 2546 Jul, 2015 [facility] [id number] [place] [address] 63678- 2546 Jul, [facility] [id number] [place] [address] 80915- 3096 May, [facility] [id number] [place] [address] 88155- 0674 May, [facility] [id number] [place] [address] 84287- 5546 May, Generalized anxiety disorder F41.1 [facility] [id number] [place] [address] 82542- 2546 May, [facility] [id number] [place] [address] 17355- 6564 Mar, [facility] [id number] [place] [address] 14464- 8353 Feb, JUAN MIGUEL (generalized anxiety disorder) 300.02 [facility] [address] [address]- 6646 Dec, [facility] [address] [address]- 7376 Dec, [facility] [address] [address]- 2546 Nov, [facility] [id number] [place] [address] 70711- 2546 Nov, [facility] [address] [place] [address] 02411- 1346 October, JUAN MIGUEL (generalized anxiety disorder) 300.02 [facility] [address] [place] [address] 74827- 2876 October, [facility] [place] [facility] [address] [id number] [place] [address]- 7122 Sep, [facility] [place] [facility] [address] [id number] [place] [address]- 1616 Sep, [facility] [place] [facility] [address] [facility] [id number] [place] [address]- 9976 Aug, [facility] [place] [facility] [address] [id number] [place] [address]- 5016 Aug, [facility] [place] [facility] [address] [id number] [place] [address]- 5002 Jul, 2014 [facility] [place] [facility] [address] [id number] [place] [address]- 9396 Jul, 2014 [facility] [place] [facility] [address] [facility] [id number] [place] [address]- 3530 Jul, 2014 [facility] [place] [facility] [address] [facility] [id number] [place] [address]- 3961 Jul, 2014 [facility] [place] [facility] [address] [facility] [id number] [place] [address]- 8222 Jul, 2014 [facility] [place] [facility] [address] [facility] [id number] [place] [address]- 5022 Jul, 2014 [facility] [place] [facility] [address] [facility] [id number] [place] [address]- 4306 Jul, 2014 [facility] [place] [facility] [address] [id number] [place] [address]- 6476 Jul, 2014 [facility] [place] [facility] [address] [id number] [place] [address]- 9736 May, [facility] [place] [facility] [address] [facility] [id number] [place] [address]- 7646 May, [facility] [place] [facility] [address] [facility] [id number] [place] [address]- 1026 May, [facility] [place] [facility] [address] [id number] [place] [address]- 8048 May, [facility] [place] [facility] [address] [id number] [place] [address]- 5418 Apr, [facility] [place] [facility] [address] [id number] [place] [address]- 7367 Apr, [facility] [place] [facility] [address] [id number] [place] [address]- 9605 Apr, [facility] [place] [facility] [address] [id number] [place] [address]- 8424 Apr, [facility] [place] [facility] [address] [id number] [place] [address] Mar, [facility] [place] [facility] [address] [id number] [place] [address]- 0915 Mar, [facility] [place] [facility] [address] [id number] [place] [address]- 0472 Mar, [facility] [place] [facility] [address] [id number] [place] [address]- 7762 Mar, [facility] [place] [facility] [address] [id number] [place] [address]- 7787 Mar, [facility] [place] [facility] [address] [facility] [id number] [place] [address]- 7786 Mar, [facility] [place] [facility] [address] [id number] [place] [address]- 9979 Feb, [facility] [place] [facility] [address] [id number] [place] [address]- 3648 Feb, [facility] [place] [facility] [address] [id number] [place] [address]- 2508 Jan, [facility] [place] [facility] [address] [id number] [place] [address]- 5163 Jan, [facility] [place] [facility] [address] [id number] [place] [address]- 6341 Jan, [facility] [address] [facility] [id number] [address]- 0716 Jan, [facility] [id number] [address]- 2836 Jan, [facility] [id number] [address]- 9086 Jan, [facility] [address] [address]- 3876 October, [facility] [address] [address]- 0946 October, [facility] [address] [address]- 5666 Jul, [facility] [address] [address]- 4236 Jul, [facility] [address] [address]- 7636 May, [facility] [address] [facility] [id number] [address]- 3776 May, IMMUNIZATIONS No Known Immunizations SOCIAL HISTORY Never Assessed REASON FOR VISIT intake Gilbert PLAN OF CARE Activity Details Follow Up 2 Months Reason: VITAL SIGNS Height 73 in 2017-02-15 Weight 215.6 lbs 2017-02-15 Heart Rate 88 bpm 2017-02-15 Respiratory Rate 20 2017-02-15 BMI 28.44 kg/m2 2017-02-15 Blood pressure systolic 160 mmHg 2017-02-15 Blood pressure diastolic 112 mmHg 2017-02-15 MEDICATIONS Medication Instructions Dosage Frequency Start Date End Date Duration Status Aspirin 81 MG Orally Once a day 1 tablet 24h Sep, 30 day(s) Active Ibuprofen 800 MG Orally Three times a day 1 tablet 8h Active Xanax 1 MG Orally as needed four times a day 1 Tablet 6h Aug, Active Hydrocodone-Acetaminophen 10-325 mg 1 Tablet by Oral route 3 times per day PRN pain Jul, Active RESULTS No Results PROCEDURES No Known procedures INSTRUCTIONS MEDICATIONS ADMINISTERED No Known Medications MEDICAL (GENERAL) HISTORY Type Description Date Medical History anxiety Medical History hypertension Medical History chronic pain Surgical History Stents in heart 07/2015
[2017-10-27] MEDS: LACTATED RINGERS 1,000 ML IV PRN ×2 (06:30→09:06)
[2017-10-27 06:34] LABS: BASOPHILS % (AUTO) 0 % (0-10); EOSINOPHILS # (AUTO) 0.2 10^3/uL (0.0-0.3); EOSINOPHILS % (AUTO) 3 % (0-10); HEMATOCRIT 43 % (40-54); HEMOGLOBIN 15.2 G/DL (13.3-17.7); LYMPHOCYTES # (AUTO) 1.7 X 10^3 (1.0-4.0); LYMPHOCYTES % (AUTO) 18 % (12-44); MEAN CORPUSCULAR HEMOGLOBIN 30 PG (25-34); MEAN CORPUSCULAR HGB CONC 36 G/DL (32-36); MEAN CORPUSCULAR VOLUME 84 FL (80-99); MEAN PLATELET VOLUME 9.8 FL (7.4-10.4); MONOCYTES # (AUTO) 0.8 X 10^3 (0.0-1.0); MONOCYTES % (AUTO) 8 % (0-12); NEUTROPHILS % (AUTO) 72 % (42-75); PLATELET COUNT 203 10^3/uL (130-400); RED BLOOD COUNT 5.08 10^6/uL (4.35-5.85); WHITE BLOOD COUNT 9.8 10^3/uL (4.3-11.0)
[2017-10-27] MEDS ORDERED: metroNIDAZOLE 500MG/100ML IVPB 100 ML IV ONE (06:45)
[2017-10-27] MEDS ORDERED: ceFAZolin 2 GM IV Premixed 50 ML IV ONE (06:45)
[2017-10-27] MEDS ORDERED: LIDOCAINE PF 2% 5 ML (XYLOCAINE) VIAL ONE (06:51)
[2017-10-27] MEDS ORDERED: DEXAMETHASONE 10 MG/ML (DECADRON) 1 ML VIAL ONE (06:51)
[2017-10-27] MEDS ORDERED: ONDANSETRON 4 MG/2 ML (SDV) Z0FRAN ONE (06:51)
[2017-10-27] MEDS ORDERED: ROCURONIUM 10 MG/ML 5 ML SYRINGE IV ONE ×2 (06:51→08:47)
[2017-10-27] MEDS ORDERED: proPOfol 200 MG/20 ML (DIPRIVAN) VIAL IV ONE (06:51)
[2017-10-27] MEDS ORDERED: MIDAZOLAM 2 MG/2 ML (VERSED) VIAL ONE (06:52)
[2017-10-27] MEDS ORDERED: fentaNYL INJECTION 250 MCG/5 ML AMP ONE (06:52)
[2017-10-27] MEDS ORDERED: MIDAZOLAM 2 MG/2 ML (VERSED) VIAL IV ONE (07:00)
[2017-10-27] MEDS ORDERED: RT-ALBUTEROL SULF 2.5 MG/3 ML PRE-MIX VIAL INH ONE (07:00)
[2017-10-27] MEDS ORDERED: LIDOCAINE/EPI 1%-1:200,000 (XYLOCAINE) 10 ML VIAL ONE (07:12)
[2017-10-27] MEDS ORDERED: BUPIVACAINE 0.5% 30 ML (SENSORCAINE) VIAL ONE (07:14)
[2017-10-27] MEDS ORDERED: LIDOCAINE 1% INJ 20 ML 20 ML VIAL ONE (07:14)
[2017-10-27] MEDS ORDERED: ESMOLOL 100 MG/10 ML (BREVIBLOC) VIAL ONE (08:19)
[2017-10-27] MEDS ORDERED: GLYCOPYRROLATE 0.2 MG/ML (ROBINUL) 2 ML VIAL ONE ×2 (09:29)
[2017-10-27] MEDS ORDERED: NEOSTIGMINE 1 MG/ML 5 ML SYRINGE ONE (09:29)
[2017-10-27] MEDS ORDERED: morphine INJ 10 MG/ML 1ML (SYR OR VIAL) ONE (09:44)
[2017-10-27] MEDS ORDERED: SEVOFLURANE (ULTANE) 15 ML INHAL SOLN ONE (09:48)
--- NOTE | 2017-10-27 10:03 | Progress Note-Post Operative ---
Post-Operative Progess Note Surgeon (s)/Chief Librarian Branch Or Department (s) Surgeon SALMA STEWARD DO Chief Librarian Branch Or Department: Dr. Saldivar Pre-Operative Diagnosis sigmoid polyp unresectable endoscopically Post-Operative Diagnosis same Procedure & Operative Findings Date of Procedure 10/27/17 Procedure Performed/Findings laparoscopic hand assisted low anterior resection Anesthesia Type general Estimated Blood Loss Estimated blood loss (mL): minimal Specimens/Packing Specimens Removed portion sigmoid colon SALMA STEWARD DO October 27, 2017 10:03
[2017-10-27] MEDS ORDERED: ONDANSETRON 4 MG/2 ML (SDV) Z0FRAN IVP PRN (10:15)
[2017-10-27] MEDS ORDERED: morphine INJ 10 MG/ML 1ML (SYR OR VIAL) IVP PRN (10:15)
[2017-10-27] MEDS ORDERED: HYDROmorphone 2 MG/ML VIAL (DILAUDID) IVP PRN (10:15)
[2017-10-27] MEDS: LACTATED RINGERS 1,000 ML IV SCH ×2 (14:28→18:19)
[2017-10-27] MEDS ORDERED: morphine INJ 10 MG/ML 1ML (SYR OR VIAL) IVP ONE (14:30)
[2017-10-27] MEDS: ceFAZolin 2 GM IV Premixed 50 ML IV SCH (15:12)
[2017-10-27] MEDS: metroNIDAZOLE 500MG/100ML IVPB 100 ML IV SCH (16:15)
[2017-10-27] MEDS ORDERED: amLODIPine 5 MG (NORVASC) TAB PO NR (17:00)
[2017-10-27] MEDS: hydrALAZINE (APRESOLINE) 25 MG TAB PO PRN (18:11)
[2017-10-28] VITALS (8 sets, daily range): BP systolic 166–197; BP diastolic 86–98
[2017-10-28] MEDS: hydrALAZINE (APRESOLINE) 25 MG TAB PO PRN ×3 (00:15→17:05)
[2017-10-28] MEDS: ceFAZolin 2 GM IV Premixed 50 ML IV SCH (00:16)
[2017-10-28] MEDS: LACTATED RINGERS 1,000 ML IV SCH ×3 (00:17→17:08)
[2017-10-28] MEDS: metroNIDAZOLE 500MG/100ML IVPB 100 ML IV SCH (00:57)
[2017-10-28] MEDS: NITROGLYCERIN 2% OINT 1 GM UNIT DOSE PACKET TOP PRN ×2 (04:32→21:35)
[2017-10-28] MEDS: morphine INJ 4 MG/ML 1 ML (VIAL/SYRINGE) IVP PRN ×3 (04:32→15:19)
[2017-10-28 05:03] LABS: HEMOGLOBIN 13.8 G/DL (13.3-17.7); MEAN PLATELET VOLUME 9.5 FL (7.4-10.4); RED BLOOD COUNT 4.67 10^6/uL (4.35-5.85); RED CELL DISTRIBUTION WIDTH 12.8 % (10.0-14.5); WHITE BLOOD COUNT 15.3 10^3/uL (4.3-11.0)
[2017-10-28 05:20] LABS: BUN/CREATININE RATIO 19; CALCIUM 8.8 MG/DL (8.5-10.1); CARBON DIOXIDE 21 MMOL/L (21-32); CHLORIDE 106 MMOL/L (98-107); CREATININE SERUM 0.88 MG/DL (0.60-1.30); GFR ESTIMATED > 60; GLUCOSE 135 MG/DL (70-105); POTASSIUM 3.9 MMOL/L (3.6-5.0); SODIUM 137 MMOL/L (135-145)
[2017-10-28] MEDS: amLODIPine 5 MG (NORVASC) TAB PO SCH (07:33)
[2017-10-28] MEDS ORDERED: FAMOTIDINE 20MG/2ML IV (PEPCID) IVP SCH (09:00)
[2017-10-28] MEDS ORDERED: raNItidine 50 MG/NS 100 ML IVPB IV SCH ×2 (09:00)
--- NOTE | 2017-10-28 09:33 | Physical Therapy Evaluation ---
PT Evaluation-General Medical Diagnosis Admission Date October 27, 2017 at 05:51 Medical Diagnosis: tubular adenoma Onset Date: October 27, 2017 Therapy Diagnosis Therapy Diagnosis: debility Height/Weight Height (Feet): 6 Height (Inches): 2.00 Weight (Pounds): 226 Weight (Ounces): 0.0 Precautions Precautions/Isolations: Fall Prevention, Standard Precautions Weight Bear Status Right Lower Extremity: Right Weight Bearing/Tolerated Left Lower Extremity: Left Weight Bearing/Tolerated Referral Physician: Tawnya Reason for Referral: Evaluation/Treatment Medical History Pertinent Medical History: HTN, Smoking Current History s/p sigmoid polyp resection Reviewed History: Yes Social History Home: Single Level Current Living Status: Children Prior/Core FIM Prior Level of Function Functional [place] Measure 0=Not Assessed/NA 4=Minimal Assistance 1=Total Assistance 5=Supervision or Setup 2=Maximal Assistance 6=Modified [place] 3=Moderate Assistance 7=Complete [place] Bed Mobility: 7 Transfers (B,C,W/C) (FIM): 7 Gait: 7 Locomotion: 7 PT Evaluation-Current Subjective Patient reluctantly agrees to PT. Pain Numeric Pain Scale: 8 Location: Medial Location Body Site: Abdomen Pain Description: Pressure, Acute Objective Patient Orientation: Normal For Age Problem Solving: Good Attachments: Lemus Catheter, IV ROM/Strength ROM Lower Extremities bilateral LE WNL Strength Lower Extremities 5/5 grossly bilaterally Integumentary/Posture Integumentary refer to nursing notes Bowel Incontinence: No Bladder Incontinence: Lemus Cath Posture WFL Neuromuscular (Tone, Coordination, Reflexes) grossly intact Sensory Vision: Functional Hearing: Functional Sensation Right Lower Extremit: Intact Sensation Left Lower Extremity: Intact Transfers Functional [place] Measure 0=Not Assessed/NA 4=Minimal Assistance 1=Total Assistance 5=Supervision or Setup 2=Maximal Assistance 6=Modified [place] 3=Moderate Assistance 7=Complete [place] Transfers (B, C, W/C) (FIM): 6 Scootin Rollin Supine to/from Sit: 6 Sit to/from Stand: 6 barrel roll bed mobility to sit EOB Gait Mode of Locomotion: Walk Anticipated Mode of Locomotion: Walk Gait (FIM): 6 Distance (FIM): 3=150 ft Distance: 800' Gait Level of Assist: 6 Gait Assistive Device: FWW Comments/Gait Description slow, safe, functional Balance Sitting Static: Normal Sitting Dynamic: Normal Standing Static: Normal Standing Dynamic: Normal Assessment/Needs 61 y.o. male, will be seen short term by skilled PT to address mobility to ensure proper healing and to safely return to home. Rehab Potential: Good PT Short Term Goals Short Term Goals Time Frame: October 29, 2017 Transfers (B,C,W/C) (FIM): 6 Gait (FIM): 7 Distance (FIM): 3=150 ft Gait Level of Assist: 7 Gait Assistive Device: None PT Plan Treatment/Plan Treatment Plan: Continue Plan of Care Treatment Plan: Bed Mobility, Education, Functional Activity Stefania, Functional Strength, Gait, Safety, Transfers Treatment Duration: October 29, 2017 Frequency: 2 times per week Estimated Hrs Per Day: .25 hour per day Patient and/or Family Agrees t: Yes Time/GCodes Time In: 830 Time Out: 850 Total Billed Treatment Time: 20 Total [facility] T[facility]Z TOLBERT PT October 28, 2017 09:33
[2017-10-28] MEDS ORDERED: SPIRONOLACTONE 25 MG (ALDACTONE) TAB PO NR (10:15)
[2017-10-28] MEDS ORDERED: cloNIDine 0.1 MG PATCH (CATAPRES TTS) TDSY TD NR (10:15)
--- NOTE | 2017-10-28 10:18 | Consultation-Hospitalist ---
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 He reports that his blood pressures been running very high for very long time and I have added multiple meds since admission due to the severity of his blood pressure levels. He denies any other significant issues except once his home medication Xanax and Ativan restarted. He denied chest pain or shortness of breath and overall is doing well postoperatively. Smoking cessation discussed. Source: patient, RN/MD Exam Limitations: no limitations Date Seen 10/28/17 Attending Physician Negro Bowling DO PCP No,Local Physician Referring Physician Date of Admission October 27, 2017 at 05:51 Home Medications & Allergies Home Medications Reviewed patient Home Medication Reconciliation performed by pharmacy medication reconciliations tree trimming line technician and/or nursing. Patients Allergies have been reviewed. Allergies Allergies Coded Allergies No Known Drug Allergies (Unverified08/11/17) Past Epusidn-Desfjr-Agkbds Hx Past Med/Social Hx: Reviewed Nursing Past Med/Soc Hx, Reviewed and Corrections made Patient Social History Marrital Status: single Employed/Student: employed ([employer]) Alcohol Use: Denies Use Recreational Drug Use: No Smoking Status: Current Everyday Smoker Type Used: Cigarettes Physical Abuse Screen: No Sexual Abuse: No Recent Foreign Travel: No Contact w/other who traveled: No Recent Hopitalizations: No Recent Infectious Disease Expo: No Seasonal Allergies Seasonal Allergies: No Past Medical History Surgeries: Abdominal, Gallbladder Cardiac: Hypertension Gastrointestinal: Polyps Loss of Vision: Bilateral Hearing Impairment: Denies Psychosocial: Sleep Difficulties, Anxiety History of Blood Disorders: No Family History Patient reports no known family medical history. Hypertension Review of Systems Constitutional: see HPI EENTM: no symptoms reported Respiratory: no symptoms reported Cardiovascular: no symptoms reported Gastrointestinal: abdominal pain (LLQ), loss of appetite, nausea Genitourinary: no symptoms reported Musculoskeletal: no symptoms reported Skin: no symptoms reported Psychiatric/Neurological: No Symptoms Reported All Other Systems Reviewed Negative Unless Noted: Yes Physical Exam Physical Exam Vital Signs Vital Signs - First Documented 10/27/17 10/27/17 10/27/17 07:24 08:16 11:05 Temp 97.8 Pulse 67 Resp 18 B/P (MAP) 172/99 (123) Pulse Ox 96 O2 Delivery Room Air O2 Flow Rate 1.00 Capillary Refill : General Appearance: No Apparent Distress, WD/WN, Chronically ill Eyes: Bilateral Eye Normal Inspection, Bilateral Eye PERRL HEENT: PERRL/EOMI, Normal ENT Inspection, Pharynx Normal Neck: Full Range of Motion, Normal Inspection, Non Tender, Supple, Carotid Bruit Respiratory: Chest Non Tender, Lungs Clear, Normal Breath Sounds, No Accessory Muscle Use, No Respiratory Distress Cardiovascular: Regular Rate, Rhythm, No Edema, No Gallop, No JVD, No Murmur, Normal Peripheral Pulses Gastrointestinal: Normal Bowel Sounds, No Organomegaly, No Pulsatile Mass, Other (post op) Back: Normal Inspection, No CVA Tenderness, No Vertebral Tenderness Extremity: Normal Capillary Refill, Normal Inspection, Normal Range of Motion, Non Tender, No Calf Tenderness, No Pedal Edema Neurologic/Psychiatric: Alert, Oriented x3, No Motor/Sensory Deficits, Normal Mood/Affect Skin: Normal Color, Warm/Dry Lymphatic: No Adenopathy Results Results/Procedures Labs Laboratory Tests 10/27/17 06:30 10/28/17 04:50 Patient resulted labs reviewed. Assessment/Plan Assessment and Plan Assess & Plan/Chief Complaint Assessment: Hypertension malignant type postoperatively Status post colon resection due to large tubular adenoma Anxiety Insomnia Current smoker Plan: Norvasc 5 mg daily in addition to hydralazine 80 mg 4 times a day in addition to nitroglycerin ointment as needed for elevated systolic blood pressure along with clonidine patch. Diagnosis/Problems Diagnosis/Problems (1) Tubular adenoma Status: Acute (2) Hypertension, malignant Status: Chronic (3) Smoker Status: Chronic (4) Ileus, postoperative Status: Acute (5) Insomnia Qualifiers: Insomnia type: primary Qualified Codes: F51.01 - Primary insomnia Clinical Quality Measures DVT/VTE Risk/Contraindication: Risk Factor Score Per Nursin RFS Level Per Nursing on Admit: 4+=Very High DEVAN KAHN DO October 28, 2017 10:18
--- NOTE | 2017-10-28 10:32 | Anesthesia-General Post-Op ---
General Patient Condition Mental Status/LOC: Same as Preop Cardiovascular: Satisfactory Nausea/Vomiting: Absent Respiratory: Satisfactory Pain: Controlled Complications: Absent Post Op Complications Complications None Follow Up Care/Instructions Patient Instructions None needed. Anesthesia/Patient Condition Patient Condition Patient is doing well, no complaints, stable vital signs, no apparent adverse anesthesia problems. No complications reported per nursing. MELINA NATHAN CRNA October 28, 2017 10:32
--- NOTE | 2017-10-28 10:50 | Progress Note ---
Subjective Date Seen by Provider: October 28, 2017 Time Seen by Provider: 10:48 Subjective/Events-last exam ambulating and using IS. Pain controlled. Urine output adequate. Tolerating liquids. Denies n/v fever sweats chills shortness of breath or chest pain. Objective Exam Vital Signs Date Time Temp Pulse Resp B/P (MAP) Pulse Ox O2 Delivery O2 Flow Rate FiO2 10/28/17 08:00 99.5 93 22 171/88 (115) 92 Room Air 10/28/17 06:15 174/86 (115) 10/28/17 04:00 97.8 97 17 181/88 (119) 91 Room Air 10/28/17 01:07 112 166/93 (117) 10/28/17 00:40 Room Air 10/28/17 00:00 99.2 108 16 179/96 (123) 91 Room Air 10/27/17 21:00 169/88 (115) 10/27/17 19:20 98.4 105 20 181/102 (128) 92 Room Air 10/27/17 18:32 Nasal Cannula 2.00 10/27/17 15:40 98.0 93 17 175/101 (125) 96 Nasal Cannula 1.00 10/27/17 12:58 178/87 (117) 10/27/17 12:00 97.0 78 16 188/98 (128) 98 Nasal Cannula 1.00 10/27/17 11:30 188/98 (128) 10/27/17 11:05 96.8 78 16 186/103 (130) 98 Nasal Cannula 1.00 I & O 10/28/17 07:00 Intake Total 4680 ml Output Total 2100 ml Balance 2580 ml Capillary Refill : General Appearance: No Apparent Distress HEENT: Normal ENT Inspection Neck: Supple Respiratory: No Accessory Muscle Use, No Respiratory Distress Cardiovascular: Regular Rate, Rhythm Gastrointestinal: soft (incisional tenderness no guarding or rebounding) Extremity: Non Tender Neurologic/Psychiatric: Alert, Oriented x3, No Motor/Sensory Deficits, Normal Mood/Affect, bell valet II-XII Norm as Tested Skin: Normal Color, Warm/Dry Lymphatic: No Adenopathy Results Lab Laboratory Tests 10/28/17 04:50: White Blood Count 15.3H, Red Blood Count 4.67, Hemoglobin 13.8, Hematocrit 39L, Mean Corpuscular Volume 83, Mean Corpuscular Hemoglobin 30, Mean Corpuscular Hemoglobin Concent 36, Red Cell Distribution Width 12.8, Platelet Count 230, Mean Platelet Volume 9.5, Sodium Level 137, Potassium Level 3.9, Chloride Level 106, Carbon Dioxide Level 21, Anion Gap 10, Blood Urea Nitrogen 17, Creatinine 0.88, Estimat Glomerular Filtration Rate > 60, BUN/Creatinine Ratio 19, Glucose Level 135H, Calcium Level 8.8 Assessment/Plan Assessment/Plan Assessment/Plan s/p marc await bowel function pain control iv fluids clear liquids scd and ambulation for dvt prophylaxis repeat labs in am Clinical Quality Measures DVT/VTE Risk/Contraindication: Risk Factor Score Per Nursin RFS Level Per Nursing on Admit: 4+=Very High SALMA STEWARD DO October 28, 2017 10:50
[2017-10-28] MEDS ORDERED: NON-FORMULARY MEDICATION 1 EA EA (Zolpidem Tartrate (Ambien) 10 MG) PO PRN (11:15)
[2017-10-28] MEDS ORDERED: ZOLPIDEM 5 MG (AMBIEN) TAB PO PRN (11:45)
[2017-10-28] MEDS: ALPRAZolam 1 MG (XANAX) TAB PO SCH ×2 (12:14→21:35)
[2017-10-28] MEDS ORDERED: HYDROcodone/APAP 5 MG/325 MG (LORTAB) TAB PO PRN (19:30)
[2017-10-28] MEDS ORDERED: NON-FORMULARY MEDICATION 1 EA EA (Metoprolol Succinate 100 MG) PO SCH (21:00)
[2017-10-28] MEDS: FAMOTIDINE 20 MG (PEPCID) TABLET PO SCH (21:35)
[2017-10-28] MEDS: meTOprolol SUCCINATE 100 MG (TOPROL XL) TAB PO SCH (21:35)
[2017-10-29 00:45] VITALS: BP 173/84
[2017-10-29] MEDS: LACTATED RINGERS 1,000 ML IV SCH (01:26)
--- NOTE | 2017-10-29 03:17 | OPERATIVE REPORT ---
DATE OF SERVICE: 10/27/2017 PREOPERATIVE DIAGNOSIS: Unresectable colon polyp. POSTOPERATIVE DIAGNOSIS: Unresectable colon polyp. PROCEDURE: Laparoscopic hand-assisted low anterior colon resection. SURGEON: Negro Bowling DO RAG CUTTING MACHINE TENDER: Dr. Saldivar, assisted in retraction, dissection and closure. ANESTHESIA: General. ESTIMATED BLOOD LOSS: Minimal. COMPLICATIONS: None. INDICATIONS: The patient is a 61-year-old male who was found to have a polyp in the sigmoid colon. Difficult to visualize due to the positioning. Biopsy obtained that demonstrated tubular adenoma. The patient was discussed re-endoscopy or colon resection, which the patient opted to proceed with colon resection. The patient understands all risks and benefits and wishes to proceed. Consent was signed in the chart. DESCRIPTION OF PROCEDURE: The patient was taken to the operating suite. He was prepped and draped in sterile fashion. Surgical pause was performed. Siomara technique was used to enter the abdomen just above the umbilicus. Once entered, a balloon trocar was inserted and pneumoperitoneum was achieved. Under direct visualization of the laparoscope, two 12 mm trocars were placed, one in the right lower quadrant, one in the right upper quadrant. At this time, the inking, the marked location of the polyp was located, which was just below the pelvic rim. At this time, a hand port was made from the umbilical incision down and the hand port was then placed and the 12 mm balloon trocar was removed. The sigmoid colon was then again mobilized along the white line of Toldt and the sigmoid colon was then continued to be mobilized down towards the proximal and mid rectum. Once dissected down past the level of the inking, an Endo-CARLOS blue load was then fired across the colon. The LigaSure, was then used to remove mesentery from the sigmoid small portion of colon. The colon was then brought up through the hand port and the Endo-CARLOS was fired proximally to the area of the polyp. Specimen was tacked with a suture. At this time, the proximal portion of the sigmoid that was viable was then opened and a 29 EEA anvil was placed in the colon and secured with the pursestring suture. The abdomen was then insufflated again and the rectum was dilated and the EEA stapler was inserted into the rectum and opened and the anastomosis was then created. A fluid was then inserted into the pelvis and air was inserted in the rectum testing the anastomosis for a leak, which there was no leak present. The abdomen was then irrigated with copious amounts of irrigation and suction. The fascial defects of the right lower quadrant and right upper quadrant trocars were removed. Using 0 Vicryl, the defects were then closed. The skin over the midline incision for the hand port was then closed using 1-0 looped PDS. The wounds were then irrigated and skin was then closed using kendra. The area was then washed and dried. Sterile bandages were applied. The patient tolerated procedure well without any complications. He was taken to recovery room in stable condition. Job ID: [id number] DocumentID: [id number] Dictated Date: 10/28/2017 20:14:26 Senior Staff Accountant Date: 10/29/2017 03:16:48 Dictated By: DO JUSTICE MONTERO
[2017-10-29 04:40] VITALS: BP 156/92
[2017-10-29 06:04] LABS: HEMOGLOBIN 14.4 G/DL (13.3-17.7); RED BLOOD COUNT 4.85 10^6/uL (4.35-5.85); RED CELL DISTRIBUTION WIDTH 12.9 % (10.0-14.5); WHITE BLOOD COUNT 15.5 10^3/uL (4.3-11.0)
[2017-10-29 06:29] LABS: BUN/CREATININE RATIO 16; CALCIUM 8.7 MG/DL (8.5-10.1); CARBON DIOXIDE 19 MMOL/L (21-32); CHLORIDE 105 MMOL/L (98-107); CREATININE SERUM 0.79 MG/DL (0.60-1.30); GFR ESTIMATED > 60; GLUCOSE 125 MG/DL (70-105); MAGNESIUM 1.9 MG/DL (1.8-2.4); POTASSIUM 3.8 MMOL/L (3.6-5.0); SODIUM 135 MMOL/L (135-145)
[2017-10-29 07:54] VITALS: BP 139/88
--- NOTE | 2017-10-29 08:08 | Progress Note-Hospitalist ---
Subjective HPI/CC On Admission Date Seen by Provider: October 29, 2017 Time Seen by Provider: 08:00 CC: Severe hypertension HPI: This is a 61-year-old white male who sees a provider [facility] who owns a [employer] service in [place] and resides in [facility] who presents to room 433 after an uncomplicated colon resection due to large adenoma which pathology revealed of tubular type. He reports that his blood pressures been running very high for very long time and I have added multiple meds since admission due to the severity of his blood pressure levels. He denies any other significant issues except once his home medication Xanax and Ativan restarted. He denied chest pain or shortness of breath and overall is doing well postoperatively. Smoking cessation discussed. Subjective/Events-last exam Patient doing much better Blood pressure is much improved with multiple meds Still wants to smoke Using incentive spirometer Pain is controlled Review of Systems General: Fatigue, Malaise Gastrointestinal: Abdominal Pain Objective Exam Vital Signs Vital Signs Date Time Temp Pulse Resp B/P (MAP) Pulse Ox O2 Delivery O2 Flow Rate FiO2 10/29/17 11:47 99.2 76 16 137/89 (105) 95 Room Air 10/27/17 18:32 2.00 Capillary Refill : General Appearance: No Apparent Distress, WD/WN, Chronically ill Neck: Normal Inspection Respiratory: Lungs Clear, Normal Breath Sounds, Decreased Breath Sounds Cardiovascular: Regular Rate, Rhythm, No Edema Neurologic/Psychiatric: Alert, Oriented x3, No Motor/Sensory Deficits, Normal 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 Assessment/Plan Assessment and Plan Assess & Plan/Chief Complaint Assessment: Hypertension malignant type postoperatively Status post colon resection due to large tubular adenoma Anxiety Insomnia Current smoker Plan: Maintain Norvasc 5 mg daily in addition to hydralazine 80 mg 4 times a day in addition to nitroglycerin ointment as needed for elevated systolic blood pressure along with clonidine patch. Hep-Lock IV fluid Diagnosis/Problems Diagnosis/Problems (1) Tubular adenoma Status: Acute (2) Hypertension, malignant Status: Chronic (3) Smoker Status: Chronic (4) Ileus, postoperative Status: Acute (5) Insomnia Qualifiers: Insomnia type: primary Qualified Codes: F51.01 - Primary insomnia Clinical Quality Measures DVT/VTE Risk/Contraindication: Risk Factor Score Per Nursin RFS Level Per Nursing on Admit: 4+=Very High DEVAN KAHN DO October 29, 2017 08:08
[2017-10-29] MEDS: ALPRAZolam 1 MG (XANAX) TAB PO SCH ×3 (09:32→20:31)
[2017-10-29] MEDS: amLODIPine 5 MG (NORVASC) TAB PO SCH (09:32)
[2017-10-29] MEDS: SPIRONOLACTONE 25 MG (ALDACTONE) TAB PO SCH (09:32)
[2017-10-29] MEDS: FAMOTIDINE 20 MG (PEPCID) TABLET PO SCH ×2 (09:32→20:31)
[2017-10-29] MEDS: ALPRAZolam 0.25 MG (XANAX) TAB PO SCH (09:32)
[2017-10-29] MEDS: cefTRIAXone INJECTION 1,000 MG in NS (IVPB) 100 ML IV SCH (09:32)
--- NOTE | 2017-10-29 09:33 | Diagnostic Imaging Report ---
INDICATION: Postoperative fever. COMPARISON: None available. FINDINGS: Patchy opacities are present in the lung bases. Low lung volumes are noted. Posterior lower lobes are poorly evaluated by portable radiography. No pleural effusion or pneumothorax. Heart is borderline enlarged. IMPRESSION: 1. Patchy bibasilar opacities are likely due to atelectasis. However, infectious process could also have this appearance. Consider PA and lateral chest radiographs to better evaluate the lung bases, as deemed clinically indicated. Dictated by: Dictated on workstation # [id number]
[2017-10-29 11:47] VITALS: BP 137/89
--- NOTE | 2017-10-29 12:23 | Physical Therapy Progress Note ---
Therapy Progress Note PT treatment attempted. Patient refused therapy secondary to trying to sleep. States he will walk with nursing. PHILOMENA COLIN PT October 29, 2017 12:23
[2017-10-29] MEDS: metroNIDAZOLE 500MG/100ML IVPB 100 ML IV SCH ×2 (14:15→20:32)
--- NOTE | 2017-10-29 15:16 | Progress Note ---
Subjective Date Seen by Provider: October 29, 2017 Time Seen by Provider: 08:21 Subjective/Events-last exam Patient doing well. Patient states passing some flatus and had a small bm. wbc still elevated. Slight fever overnight. Patient states pain controlled. Denies n/v sweats chills shortness of breath or chest pain. Using incentive spirometer. Objective Exam Vital Signs Date Time Temp Pulse Resp B/P (MAP) Pulse Ox O2 Delivery O2 Flow Rate FiO2 10/29/17 11:47 99.2 76 16 137/89 (105) 95 Room Air 10/29/17 08:00 Room Air 10/29/17 07:54 99.0 95 18 139/88 (105) 94 Room Air 10/29/17 04:40 99.5 91 20 156/92 (113) 93 Room Air 10/29/17 00:45 100.0 93 20 173/84 (113) 93 Room Air 10/28/17 21:00 Room Air 10/28/17 20:55 100.4 103 18 197/98 (131) 96 Room Air 10/28/17 16:20 99.3 88 20 188/93 (124) 92 Room Air I & O 10/29/17 07:00 Intake Total 2182 ml Output Total 3575 ml Balance -1393 ml Capillary Refill : General Appearance: No Apparent Distress, WD/WN, Chronically ill HEENT: PERRL/EOMI, Normal ENT Inspection, Pharynx Normal Neck: Full Range of Motion, Normal Inspection, Non Tender, Supple Respiratory: Chest Non Tender, No Accessory Muscle Use, No Respiratory Distress Cardiovascular: Regular Rate, Rhythm, No Edema, No Gallop, No JVD, No Murmur, Normal Peripheral Pulses Gastrointestinal: soft (incisional tenderness no guarding or rebounding, no signs of infection) Extremity: Normal Capillary Refill, Normal Inspection, Normal Range of Motion, Non Tender, No Calf Tenderness, No Pedal Edema Neurologic/Psychiatric: Alert, Oriented x3, No Motor/Sensory Deficits, Normal Mood/Affect Skin: Normal Color, Warm/Dry Lymphatic: No Adenopathy Results Lab Laboratory Tests 10/29/17 05:15: White Blood Count 15.5H, Red Blood Count 4.85, Hemoglobin 14.4, Hematocrit 41, Mean Corpuscular Volume 85, Mean Corpuscular Hemoglobin 30, Mean Corpuscular Hemoglobin Concent 35, Red Cell Distribution Width 12.9, Platelet Count 187, Mean Platelet Volume 10.0, Sodium Level 135, Potassium Level 3.8, Chloride Level 105, Carbon Dioxide Level 19L, Anion Gap 11, Blood Urea Nitrogen 13, Creatinine 0.79, Estimat Glomerular Filtration Rate > 60, BUN/Creatinine Ratio 16, Glucose Level 125H, Calcium Level 8.7, Magnesium Level 1.9 Microbiology 10/27/17 MRSA Screen - Final, Complete MRSA not isolated Assessment/Plan Assessment/Plan Assessment/Plan s/p marc for unresectable tubular adenoma HTN Tobacco use pain control iv fluids clear liquids scd and ambulation for dvt prophylaxis Chest x ray for fever Will start abx empirically due to fever and elevated wbc, by physical exam he is doing well postoperatively repeat labs in am Clinical Quality Measures DVT/VTE Risk/Contraindication: Risk Factor Score Per Nursin RFS Level Per Nursing on Admit: 4+=Very High SALMA STEWARD DO October 29, 2017 15:16
[2017-10-29 16:00] VITALS: BP 131/79
[2017-10-29 20:00] VITALS: BP 147/85
[2017-10-29] MEDS: meTOprolol SUCCINATE 100 MG (TOPROL XL) TAB PO SCH (20:31)
[2017-10-30] VITALS: BP 132/80
[2017-10-30 04:00] VITALS: BP 124/69
[2017-10-30] MEDS: metroNIDAZOLE 500MG/100ML IVPB 100 ML IV SCH ×3 (05:52→20:39)
[2017-10-30 05:59] LABS: HEMOGLOBIN 16.4 G/DL (13.3-17.7); MEAN PLATELET VOLUME 9.9 FL (7.4-10.4); RED BLOOD COUNT 5.53 10^6/uL (4.35-5.85); RED CELL DISTRIBUTION WIDTH 13.8 % (10.0-14.5); WHITE BLOOD COUNT 18.4 10^3/uL (4.3-11.0)
[2017-10-30 06:10] LABS: BUN/CREATININE RATIO 29; CALCIUM 9.1 MG/DL (8.5-10.1); CARBON DIOXIDE 16 MMOL/L (21-32); CHLORIDE 109 MMOL/L (98-107); CREATININE SERUM 1.11 MG/DL (0.60-1.30); GFR ESTIMATED > 60; GLUCOSE 124 MG/DL (70-105); MAGNESIUM 2.4 MG/DL (1.8-2.4); SODIUM 135 MMOL/L (135-145)
--- NOTE | 2017-10-30 07:53 | Progress Note ---
Subjective Date Seen by Provider: October 30, 2017 Time Seen by Provider: 07:49 Subjective/Events-last exam Patient feeling pretty good. Having bowel movements. Not using incentive spirometer much. Chest x ray yesterday with bibasilar patchy opacities atelectasis vs infiltrates. WBC increasing. No fever currently. Tolerating liquids. Denies n/v sweats chills shortness of breath or chest pain. Objective Exam Vital Signs Date Time Temp Pulse Resp B/P (MAP) Pulse Ox O2 Delivery O2 Flow Rate FiO2 10/30/17 04:00 98.0 78 20 124/69 (87) 95 Room Air 10/30/17 00:00 99.3 86 18 132/80 (97) 92 Room Air 10/29/17 21:00 Room Air 10/29/17 20:00 99.2 85 16 147/85 (105) 91 Room Air 10/29/17 16:00 98.8 83 16 131/79 (96) 93 Room Air 10/29/17 11:47 99.2 76 16 137/89 (105) 95 Room Air 10/29/17 08:00 Room Air 10/29/17 07:54 99.0 95 18 139/88 (105) 94 Room Air I & O 10/30/17 07:00 Intake Total 1850 ml Balance 1850 ml Capillary Refill : General Appearance: No Apparent Distress, WD/WN, Chronically ill HEENT: PERRL/EOMI, Normal ENT Inspection, Pharynx Normal Neck: Normal Inspection Respiratory: No Accessory Muscle Use, No Respiratory Distress, Decreased Breath Sounds Cardiovascular: Regular Rate, Rhythm, No Edema Gastrointestinal: soft (incisional tenderness no guarding or rebounding, no signs of infection) Extremity: Normal Capillary Refill, Normal Inspection, Normal Range of Motion, Non Tender, No Calf Tenderness, No Pedal Edema Neurologic/Psychiatric: Alert, Oriented x3, No Motor/Sensory Deficits, Normal Mood/Affect, visiting nurse II-XII Norm as Tested Skin: Normal Color, Warm/Dry Lymphatic: No Adenopathy Results Lab Laboratory Tests 10/30/17 05:40: White Blood Count 18.4H, Red Blood Count 5.53, Hemoglobin 16.4, Hematocrit 47, Mean Corpuscular Volume 85, Mean Corpuscular Hemoglobin 30, Mean Corpuscular Hemoglobin Concent 35, Red Cell Distribution Width 13.8, Platelet Count 248, Mean Platelet Volume 9.9, Sodium Level 135, Potassium Level 4.0, Chloride Level 109H, Carbon Dioxide Level 16L, Anion Gap 10, Blood Urea Nitrogen 32H, Creatinine 1.11, Estimat Glomerular Filtration Rate > 60, BUN/Creatinine Ratio 29, Glucose Level 124H, Calcium Level 9.1, Magnesium Level 2.4 Microbiology 10/27/17 MRSA Screen - Final, Complete MRSA not isolated Assessment/Plan Assessment/Plan Assessment/Plan s/p marc for unresectable tubular adenoma HTN Tobacco use pain control iv fluids clear liquids scd and ambulation for dvt prophylaxis Chest x ray 2 view and encouraged to use incentive spirometer UA On Rocephin/Flagyl repeat labs in am Clinical Quality Measures DVT/VTE Risk/Contraindication: Risk Factor Score Per Nursin RFS Level Per Nursing on Admit: 4+=Very High SALMA STEWARD DO October 30, 2017 07:53
[2017-10-30] MEDS: ALPRAZolam 1 MG (XANAX) TAB PO SCH ×3 (09:10→20:34)
[2017-10-30] MEDS: FAMOTIDINE 20 MG (PEPCID) TABLET PO SCH ×2 (09:10→20:34)
[2017-10-30] MEDS: ENOXAPARIN 40 MG/0.4 ML (LOVENOX) SYR SC SCH (09:10)
[2017-10-30] MEDS: ALPRAZolam 0.25 MG (XANAX) TAB PO SCH (09:10)
[2017-10-30] MEDS: amLODIPine 5 MG (NORVASC) TAB PO SCH (09:10)
[2017-10-30] MEDS: cefTRIAXone INJECTION 1,000 MG in NS (IVPB) 100 ML IV SCH (09:10)
[2017-10-30] MEDS: SPIRONOLACTONE 25 MG (ALDACTONE) TAB PO SCH (09:10)
[2017-10-30 09:30] VITALS: BP 120/81
--- NOTE | 2017-10-30 10:02 | Diagnostic Imaging Report ---
PATIENT HISTORY: Fever. TECHNIQUE: 2 views of the chest COMPARISON: 10/29/2017 FINDINGS: Lung volumes are normal. There is persistent right basilar airspace opacity, which appears improved compared to the prior study. The left basilar airspace opacity appears unchanged. The cardiomediastinal silhouette is normal in size and contour. No pleural effusion or pneumothorax is seen. IMPRESSION: Bibasilar airspace opacities, improved on the right and stable on the left. Findings are favored to represent atelectasis, with infection thought less likely. Dictated by: Dictated on workstation # [id number]
[2017-10-30 12:00] VITALS: BP 119/84
--- NOTE | 2017-10-30 12:27 | Progress Note-Hospitalist ---
Subjective HPI/CC On Admission Date Seen by Provider: October 30, 2017 Time Seen by Provider: 11:00 CC: Severe hypertension HPI: This is a 61-year-old white male who sees a provider [facility] who owns a [employer] service in [place] and resides in [place] [facility] who presents to room 433 after an uncomplicated colon resection due to large adenoma which pathology revealed of tubular type. He reports that his blood pressures been running very high for very long time and I have added multiple meds since admission due to the severity of his blood pressure levels. He denies any other significant issues except once his home medication Xanax and Ativan restarted. He denied chest pain or shortness of breath and overall is doing well postoperatively. Smoking cessation discussed. Subjective/Events-last exam Patient doing well Chest x-ray reviewed and atelectasis confirmed White count is 18,000 but nonspecific We'll add breathing treatments since he is a smoker Otherwise doing well Review of Systems Gastrointestinal: Abdominal Pain Objective Exam Vital Signs Vital Signs Date Time Temp Pulse Resp B/P (MAP) Pulse Ox O2 Delivery O2 Flow Rate FiO2 10/30/17 09:30 98.1 76 20 120/81 (94) 94 Room Air 10/27/17 18:32 2.00 Capillary Refill : General Appearance: No Apparent Distress, WD/WN, Chronically ill Respiratory: Lungs Clear, Normal Breath Sounds, Decreased Breath Sounds Cardiovascular: Regular Rate, Rhythm, No Edema Neurologic/Psychiatric: Alert, Oriented x3, No Motor/Sensory Deficits, Normal 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 Assessment/Plan Assessment and Plan Assess & Plan/Chief Complaint Assessment: Hypertension malignant type postoperatively Status post colon resection due to large tubular adenoma Anxiety Insomnia Current smoker ATX on CXR Plan: Maintain Norvasc 5 mg daily in addition to hydralazine 80 mg 4 times a day in addition to nitroglycerin ointment as needed for elevated systolic blood pressure along with clonidine patch. Nebs Diagnosis/Problems Diagnosis/Problems (1) Tubular adenoma Status: Acute (2) Hypertension, malignant Status: Chronic (3) Smoker Status: Chronic (4) Ileus, postoperative Status: Acute (5) Insomnia Qualifiers: Insomnia type: primary Qualified Codes: F51.01 - Primary insomnia (6) Atelectasis Status: Acute (7) Leukocytosis Status: Acute Qualifiers: Leukocytosis type: leukemoid reaction Qualified Codes: D72.823 - Leukemoid reaction Clinical Quality Measures DVT/VTE Risk/Contraindication: Risk Factor Score Per Nursin RFS Level Per Nursing on Admit: 4+=Very High DEVAN KAHN DO October 30, 2017 12:27
[2017-10-30 13:48] LABS: CLARITY,URINE SLIGHTLY CLOUDY; COLOR,URINE AMBER; GLUCOSE, URINE (UA) NEGATIVE (NEGATIVE); KETONES,URINE 1+ (NEGATIVE); LEUKOCYTE ESTERASE ,URINE 2+ (NEGATIVE); NITRITE,URINE POSITIVE (NEGATIVE); PH,URINE 5 (5-9); PROTEIN,URINE 2+ (NEGATIVE); UROBILINOGEN,URINE 1 MG/DL (NORMAL)
[2017-10-30 14:06] LABS: BACTERIA,URINE TRACE /HPF; BILIRUBIN,URINE 1+ (NEGATIVE); WHITE BLOOD CELL CASTS, URINE RARE /LPF
[2017-10-30] MEDS: RT-ALBUTEROL/IPRATROPIUM 3 ML (DUONEB) VIAL INH SCH ×3 (14:13→22:14)
[2017-10-30 16:30] VITALS: BP 115/75
[2017-10-30] MEDS: meTOprolol SUCCINATE 100 MG (TOPROL XL) TAB PO SCH (20:34)
[2017-10-31 00:59] VITALS: BP 100/62
[2017-10-31] MEDS: RT-ALBUTEROL/IPRATROPIUM 3 ML (DUONEB) VIAL INH SCH ×6 (01:28→22:41)
[2017-10-31] MEDS: metroNIDAZOLE 500MG/100ML IVPB 100 ML IV SCH ×3 (05:54→21:38)
[2017-10-31 06:02] LABS: HEMOGLOBIN 15.9 G/DL (13.3-17.7); MEAN PLATELET VOLUME 10.2 FL (7.4-10.4); RED BLOOD COUNT 5.31 10^6/uL (4.35-5.85); RED CELL DISTRIBUTION WIDTH 13.4 % (10.0-14.5); WHITE BLOOD COUNT 13.6 10^3/uL (4.3-11.0)
[2017-10-31 06:22] LABS: BUN/CREATININE RATIO 37; CALCIUM 9.1 MG/DL (8.5-10.1); CARBON DIOXIDE 15 MMOL/L (21-32); CHLORIDE 112 MMOL/L (98-107); CREATININE SERUM 1.15 MG/DL (0.60-1.30); GFR ESTIMATED > 60; GLUCOSE 125 MG/DL (70-105); MAGNESIUM 2.7 MG/DL (1.8-2.4); POTASSIUM 3.8 MMOL/L (3.6-5.0); SODIUM 138 MMOL/L (135-145)
[2017-10-31] MEDS: amLODIPine 5 MG (NORVASC) TAB PO SCH (08:25)
[2017-10-31] MEDS: ENOXAPARIN 40 MG/0.4 ML (LOVENOX) SYR SC SCH (08:25)
[2017-10-31] MEDS: FAMOTIDINE 20 MG (PEPCID) TABLET PO SCH ×2 (08:26→20:31)
[2017-10-31] MEDS: ALPRAZolam 0.25 MG (XANAX) TAB PO SCH (08:26)
[2017-10-31] MEDS: SPIRONOLACTONE 25 MG (ALDACTONE) TAB PO SCH (08:26)
[2017-10-31] MEDS: ALPRAZolam 1 MG (XANAX) TAB PO SCH ×3 (08:26→20:31)
[2017-10-31] MEDS: cefTRIAXone INJECTION 1,000 MG in NS (IVPB) 100 ML IV SCH (08:27)
[2017-10-31 08:30] VITALS: BP 166/92
[2017-10-31] MEDS: hydrALAZINE (APRESOLINE) 25 MG TAB PO PRN (08:35)
--- NOTE | 2017-10-31 10:09 | Progress Note ---
Subjective Time Seen by Provider: 09:53 Subjective/Events-last exam Pt seen and examined, wants a T-bone steak and to get out of here. Pt reports + flatus and BM this am. Pain is minimal, controlled with meds. Review of Systems Pulmonary: No Dyspnea, No Cough Cardiovascular: No: Chest Pain Objective Exam Vital Signs Date Time Temp Pulse Resp B/P (MAP) Pulse Ox O2 Delivery O2 Flow Rate FiO2 10/31/17 07:13 96 Room Air 10/31/17 01:29 Room Air 10/31/17 00:59 97.3 75 20 100/62 (75) 97 Room Air 10/30/17 22:15 Room Air 10/30/17 21:00 Room Air 10/30/17 18:53 94 Room Air 10/30/17 16:30 98.3 76 18 115/75 (88) 93 Room Air 10/30/17 14:17 94 Room Air 10/30/17 12:00 96.5 80 20 119/84 (96) 94 Room Air I & O 10/31/17 07:00 Intake Total 1120 ml Balance 1120 ml Capillary Refill : General Appearance: No Apparent Distress, WD/WN HEENT: PERRL/EOMI Respiratory: Lungs Clear Cardiovascular: Regular Rate, Rhythm, No Edema Gastrointestinal: soft (incisional tenderness no guarding or rebounding), other (slight erythema around incision, looks just superficial) Extremity: No Calf Tenderness, No Pedal Edema Results Lab Laboratory Tests 10/30/17 13:20: Urine Color AMBERH, Urine Clarity SLIGHTLY CLOUDY, Urine pH 5, Urine Specific [place] 1.025H, Urine Protein 2+H, Urine Glucose (UA) NEGATIVE, Urine Ketones 1+ H, Urine Nitrite POSITIVEH, Urine Bilirubin 1+H, Urine Urobilinogen 1, Urine Leukocyte Esterase 2+H, Urine RBC (Auto) NEGATIVE, Urine RBC NONE, Urine WBC 5- 10H, Urine Squamous Epithelial Cells NONE, Urine Crystals NONE, Urine Bacteria TRACE, Urine Casts PRESENT, Urine Hyaline Casts 5-10H, Urine White Blood Cell Casts RAREH, Urine Mucus LARGEH, Urine Culture Indicated YES 10/31/17 05:32: White Blood Count 13.6H, Red Blood Count 5.31, Hemoglobin 15.9, Hematocrit 45, Mean Corpuscular Volume 84, Mean Corpuscular Hemoglobin 30, Mean Corpuscular Hemoglobin Concent 36, Red Cell Distribution Width 13.4, Platelet Count 242, Mean Platelet Volume 10.2, Sodium Level 138, Potassium Level 3.8, Chloride Level 112H, Carbon Dioxide Level 15L, Anion Gap 11, Blood Urea Nitrogen 43H, Creatinine 1.15, Estimat Glomerular Filtration Rate > 60, BUN/Creatinine Ratio 37, Glucose Level 125H, Calcium Level 9.1, Magnesium Level 2.7H Microbiology 10/27/17 MRSA Screen - Final, Complete MRSA not isolated 10/30/17 Urine Culture - Preliminary, Resulted NO GROWTH Assessment/Plan Assessment/Plan Assessment/Plan s/p marc for unresectable tubular adenoma HTN Tobacco use WBC trending down, Urine culture showed no growth Encourage only oral meds for pain control, will decrease iv fluids, and increase to soft diet. Continue scd and ambulation for dvt prophylaxis, as well asencouraged to use incentive spirometer On Rocephin/Flagyl repeat labs in am. Clinical Quality Measures DVT/VTE Risk/Contraindication: Risk Factor Score Per Nursin RFS Level Per Nursing on Admit: 4+=Very High MARTELL GOODMAN DO October 31, 2017 10:09
[2017-10-31] MEDS ORDERED: SPIR25TA3 PO (10:16)
[2017-10-31] MEDS ORDERED: AMLO5TAB2 PO (10:16)
--- NOTE | 2017-10-31 10:18 | Progress Note-Hospitalist ---
Subjective HPI/CC On Admission Date Seen by Provider: October 31, 2017 Time Seen by Provider: 09:30 CC: Severe hypertension HPI: This is a 61-year-old white male who sees a provider [facility] who owns a [employer] service in [place] and resides in [facility] who presents to room 433 after an uncomplicated colon resection due to large adenoma which pathology revealed of tubular type. He reports that his blood pressures been running very high for very long time and I have added multiple meds since admission due to the severity of his blood pressure levels. He denies any other significant issues except once his home medication Xanax and Ativan restarted. He denied chest pain or shortness of breath and overall is doing well postoperatively. Smoking cessation discussed. Subjective/Events-last exam Patient doing very well Eating regular diet Lungs are clear BP is much improved so sent in the Rx Review of Systems Gastrointestinal: Abdominal Pain Objective Exam Vital Signs Vital Signs Date Time Temp Pulse Resp B/P (MAP) Pulse Ox O2 Delivery O2 Flow Rate FiO2 10/31/17 07:13 96 Room Air 10/31/17 00:59 97.3 75 20 100/62 (75) 10/27/17 18:32 2.00 Capillary Refill : General Appearance: No Apparent Distress, WD/WN, Chronically ill Respiratory: Lungs Clear, Normal Breath Sounds Cardiovascular: Regular Rate, Rhythm, No Edema Neurologic/Psychiatric: Alert, Oriented x3, No Motor/Sensory Deficits, Normal Mood/Affect Results/Procedures Lab Laboratory Tests 10/31/17 05:32 Patient resulted labs reviewed. Assessment/Plan Assessment and Plan Assess & Plan/Chief Complaint Assessment: Hypertension malignant type postoperatively Status post colon resection due to large tubular adenoma Anxiety Insomnia Current smoker ATX on CXR Plan: New BP meds sent to pharmacy Diagnosis/Problems Diagnosis/Problems (1) Tubular adenoma Status: Acute (2) Hypertension, malignant Status: Chronic (3) Smoker Status: Chronic (4) Ileus, postoperative Status: Acute (5) Insomnia Qualifiers: Insomnia type: primary Qualified Codes: F51.01 - Primary insomnia (6) Atelectasis Status: Acute (7) Leukocytosis Status: Acute Qualifiers: Leukocytosis type: leukemoid reaction Qualified Codes: D72.823 - Leukemoid reaction Clinical Quality Measures DVT/VTE Risk/Contraindication: Risk Factor Score Per Nursin RFS Level Per Nursing on Admit: 4+=Very High EDVAN KAHN DO October 31, 2017 10:18
[2017-10-31 15:50] VITALS: BP 120/76
[2017-10-31] MEDS: meTOprolol SUCCINATE 100 MG (TOPROL XL) TAB PO SCH (20:31)
[2017-11-01] VITALS: BP 116/57
[2017-11-01] MEDS: RT-ALBUTEROL/IPRATROPIUM 3 ML (DUONEB) VIAL INH SCH ×3 (02:24→11:15)
[2017-11-01 05:05] LABS: HEMOGLOBIN 14.1 G/DL (13.3-17.7); MEAN PLATELET VOLUME 9.7 FL (7.4-10.4); RED BLOOD COUNT 4.73 10^6/uL (4.35-5.85); RED CELL DISTRIBUTION WIDTH 13.4 % (10.0-14.5); WHITE BLOOD COUNT 10.7 10^3/uL (4.3-11.0)
[2017-11-01] MEDS: metroNIDAZOLE 500MG/100ML IVPB 100 ML IV SCH ×2 (05:06→14:23)
[2017-11-01 05:26] LABS: BUN/CREATININE RATIO 38; CALCIUM 8.5 MG/DL (8.5-10.1); CARBON DIOXIDE 18 MMOL/L (21-32); CHLORIDE 113 MMOL/L (98-107); CREATININE SERUM 0.87 MG/DL (0.60-1.30); GFR ESTIMATED > 60; GLUCOSE 150 MG/DL (70-105); MAGNESIUM 2.2 MG/DL (1.8-2.4); POTASSIUM 3.8 MMOL/L (3.6-5.0); SODIUM 139 MMOL/L (135-145)
[2017-11-01 08:00] VITALS: BP 146/81
[2017-11-01] MEDS: ENOXAPARIN 40 MG/0.4 ML (LOVENOX) SYR SC SCH (08:57)
[2017-11-01] MEDS: cefTRIAXone INJECTION 1,000 MG in NS (IVPB) 100 ML IV SCH (08:59)
[2017-11-01] MEDS: amLODIPine 5 MG (NORVASC) TAB PO SCH (08:59)
[2017-11-01] MEDS: ALPRAZolam 1 MG (XANAX) TAB PO SCH ×2 (09:01→12:38)
[2017-11-01] MEDS: FAMOTIDINE 20 MG (PEPCID) TABLET PO SCH (09:02)
[2017-11-01] MEDS: SPIRONOLACTONE 25 MG (ALDACTONE) TAB PO SCH (09:03)
[2017-11-01] MEDS: ALPRAZolam 0.25 MG (XANAX) TAB PO SCH (09:08)
[2017-11-01] MEDS ORDERED: METO-395 PO (10:12)
--- NOTE | 2017-11-01 10:13 | Progress Note-Hospitalist ---
Subjective HPI/CC On Admission Date Seen by Provider: November 01, 2017 Time Seen by Provider: 09:15 CC: Severe hypertension HPI: This is a 61-year-old white male who sees a provider [facility] who owns a [employer] service in [place] and resides in [facility] who presents to room 433 after an uncomplicated colon resection due to large adenoma which pathology revealed of tubular type. He reports that his blood pressures been running very high for very long time and I have added multiple meds since admission due to the severity of his blood pressure levels. He denies any other significant issues except once his home medication Xanax and Ativan restarted. He denied chest pain or shortness of breath and overall is doing well postoperatively. Smoking cessation discussed. Subjective/Events-last exam Patient will go home today Needs a refill on his Toprol Denies any pain issues Does go downstairs to smoke and I counseled regarding smoking cessation Review of Systems Gastrointestinal: Abdominal Pain Objective Exam Vital Signs Vital Signs Date Time Temp Pulse Resp B/P (MAP) Pulse Ox O2 Delivery O2 Flow Rate FiO2 11/01/17 08:00 99.1 83 20 146/81 (102) 97 Room Air 10/27/17 18:32 2.00 Capillary Refill : General Appearance: No Apparent Distress, WD/WN, Chronically ill Respiratory: Lungs Clear, Normal Breath Sounds Cardiovascular: Regular Rate, Rhythm, No Edema Neurologic/Psychiatric: Alert, Oriented x3, No Motor/Sensory Deficits, Normal Mood/Affect Results/Procedures Lab Laboratory Tests 11/01/17 04:46 Patient resulted labs reviewed. Assessment/Plan Assessment and Plan Assess & Plan/Chief Complaint Assessment: Hypertension malignant type postoperatively now normal Status post colon resection due to large tubular adenoma Anxiety Insomnia Current smoker ATX on CXR now resolved Plan: New BP meds sent to pharmacy Diagnosis/Problems Diagnosis/Problems (1) Tubular adenoma Status: Acute (2) Hypertension, malignant Status: Chronic (3) Smoker Status: Chronic (4) Ileus, postoperative Status: Acute (5) Insomnia Qualifiers: Insomnia type: primary Qualified Codes: F51.01 - Primary insomnia (6) Atelectasis Status: Acute (7) Leukocytosis Status: Acute Qualifiers: Leukocytosis type: leukemoid reaction Qualified Codes: D72.823 - Leukemoid reaction Clinical Quality Measures DVT/VTE Risk/Contraindication: Risk Factor Score Per Nursin RFS Level Per Nursing on Admit: 4+=Very High DEVAN KAHN DO November 01, 2017 10:13
[2017-11-01] MEDS ORDERED: CEFD300C3 PO (13:44)
[2017-11-01] MEDS ORDERED: DOCU-143 PO (13:44)
[2017-11-01] MEDS ORDERED: ACHD5005 PO (13:44)
[2017-11-01] MEDS ORDERED: METR500T PO (13:44)
--- NOTE | 2017-11-01 13:47 | Discharge Inst-Simple/Standard ---
Discharge Inst-Standard Discharge Medications New, Converted or Re-Newed RX: RX on Chart Patient Instructions/Follow Up Plan of Care/Instructions/FU: 1 week Tawnya Activity as Tolerated: No Discharge Diet: Soft Diet Other Inst to Patient Follow up Appt: Make appointment for 1 week. Instructions: No lifting greater than 10 pounds. No strenuous activity. May shower in 24 hours, no tub bath or soaking. Use incentive spirometer at home as directed. No Smoking Skin/Wound Care: Keep incisions clean and dry. Any issue be seen at that time. Symptoms to Report: Appetite Changes, Extremity Discoloration, Numbness/Tingling, Swelling Increased , Bleeding Excessive, Eyesight Changes, Pain Increased, Urine Color Change, Constipation(Persistent), Fever over 101 degree F, Pain/Pressure in chest, Urinating Difficulty, Cough Up/Vomit Blood, Heart Beat Irreg/Pounding, Pain/ Pressure in jaw, Vaginal Bleeding Increase, Cramps in feet or legs, Lightheadedness, Pain/Pressure in shoulder, Diarrhea(Persistent), Memory Changes Suddenly, Questions/Concerns, Weight gain consecutive days, Dizziness/ Fainting, Nausea/Vomiting, Shortness of Breath, Weight gain over 2 pounds If questions or concerns contact your physician Or seek help at emergency department. Planned Outpatient Orders/Ref. Pneu Vac Indicated: Yes SALMA STEWARD DO November 01, 2017 13:47
[2017-11-04] MEDS ORDERED: CLONIDINE PATCH REMOVAL TP SCH (10:15)
== END 2017-11-01 14:50 | disposition home or self-care (01) | DRG 330 ==
LOC: 4TH 05:51 → SURG 05:52 → 4TH 13:17
PROVIDERS: ADMIT Surgery; ATTEND Surgery
PROC: 0DTN4ZZ Resection of Sigmoid Colon, Percutaneous Endoscopic Approach (ICD-10-PCS; principal; 2017-10-28)
DX: D12.5 Benign neoplasm of sigmoid colon (principal); K91.89 Other postprocedural complications and disorders of digestive system; K56.7 Ileus, unspecified; J98.11 Atelectasis; I10 Essential (primary) hypertension; F17.210 Nicotine dependence, cigarettes, uncomplicated; D72.823 Leukemoid reaction; J44.9 Chronic obstructive pulmonary disease, unspecified; G62.9 Polyneuropathy, unspecified; F41.9 Anxiety disorder, unspecified; G47.00 Insomnia, unspecified
CPT/HCPCS: 36415; 71045; 71046; 80048; 81000; 83735; 85025; 85027; 86850; 86900; 86901; 87081; 87088; 88309; 94640; 94664; 94760